=== PATIENT | female | born 1955 | race Caucasian/White ===

== ENCOUNTER 2019-01-22 11:34 | Inpatient (IN) | payer OTHER ==
[2019-01-22] MEDS ORDERED: HEPARIN 1000 UNITS/ML 10 ML INJ (13:14)
[2019-01-22] MEDS: INSULIN ASPART [NOVOLOG] 3 ML PEN SC (13:38)
[2019-01-22] MEDS ORDERED: PROPOFOL 20 ML ×2 (13:56→15:41)
[2019-01-22] MEDS ORDERED: MIDAZOLAM 1 MG/ML 2 ML INJ (13:56)
[2019-01-22] MEDS ORDERED: HYDROmorphONE 2 MG/ML SYG (13:56)
[2019-01-22] MEDS ORDERED: FLUMAZENIL 0.5 MG INJ (13:56)
[2019-01-22] MEDS ORDERED: ROCURONIUM 50 MG INJ ×2 (13:56→15:41)
[2019-01-22] MEDS ORDERED: CEFAZOLIN 1 GM INJ (13:56)
[2019-01-22] MEDS ORDERED: ONDANSETRON 4 MG INJ (13:56)
[2019-01-22] MEDS ORDERED: METOCLOPRAMIDE 10 MG INJ (13:57)
[2019-01-22] MEDS ORDERED: HYDROmorphONE 0.5 MG/0.5 ML SYG IV ×3 (14:00)
[2019-01-22] MEDS ORDERED: MEPERIDINE 25 MG INJ IV (14:00)
[2019-01-22] MEDS ORDERED: hydrALAzine 20 MG INJ IV ×2 (14:00→20:00)
[2019-01-22] MEDS ORDERED: DIPHENHYDRAMINE 50 MG INJ IV (14:00)
[2019-01-22] MEDS ORDERED: ONDANSETRON 4 MG INJ IV (14:00)
[2019-01-22] MEDS ORDERED: LABETALOL HCL 20MG INJ IV (14:00)
[2019-01-22] MEDS ORDERED: FENTAnyl 50 MCG/ML VIAL IV ×3 (14:00)
[2019-01-22] MEDS ORDERED: FAMOTIDINE 20 MG INJ (15:26)
[2019-01-22] MEDS ORDERED: METOPROLOL 5 MG INJ (15:32)
[2019-01-22] MEDS ORDERED: NALOXONE (0.4 MG/ML) INJ IV (16:00)
[2019-01-22] MEDS ORDERED: GLYCOPYRROLATE 0.4 MG INJ (18:08)
[2019-01-22] MEDS ORDERED: NEOSTIGMINE 3 MG/3 ML SYRINGE (18:08)
[2019-01-22] MEDS: NEOMYC/POLYMYX/BACIT 30 GM OINT (18:30)
[2019-01-22] MEDS: CEFAZOLIN 1 GM INJ (18:31)
[2019-01-22] MEDS: GELATIN SIZE 100 SPONGE ×2 (18:31)
[2019-01-22] MEDS: THROMBIN 5000 UNIT VIAL ×2 (18:31→18:32)
[2019-01-22] MEDS ORDERED: hydrOXYzine HCL 50 MG TAB PO (20:00)
[2019-01-22] MEDS ORDERED: INSULIN GLARGINE [LANtus] 3 ML PEN SC (21:00)
[2019-01-22] MEDS ORDERED: GLUCAGON 1 MG INJ IM (22:30)
[2019-01-22] MEDS ORDERED: GLUCOSE GEL 15 GRAM TUBE BUCCAL (22:30)
[2019-01-22] MEDS ORDERED: hydrOXYzine HCL 25 MG TAB PO (22:30)
[2019-01-22] MEDS ORDERED: GLUCOSE GEL 15 GRAM TUBE PO (22:30)
[2019-01-22] MEDS: HYDROmorphONE 0.5 MG/0.5 ML SYG IV (23:39)
[2019-01-22] MEDS: NS + KCL 20 MEQ 1,000 ML IV (23:41)
[2019-01-22] MEDS: INSULIN GLARGINE [LANTus] (100 UNITS/ML) SYG SC (23:47)
[2019-01-22] MEDS: ROPINIROLE 1 MG TAB PO (23:49)
[2019-01-22] MEDS: ATORVASTATIN 40 MG TAB PO (23:49)
[2019-01-23] MEDS: CEFAZOLIN 2 GM/50 ML (PMX) 50 ML IVPB ×4 (01:03→22:30)
[2019-01-23] MEDS: HYDROmorphONE 1 MG/ML SYG IV ×6 (01:04→21:14)
[2019-01-23] MEDS: INSULIN ASPART [NOVOLOG] 3 ML PEN SC ×9 (01:12→21:32)
[2019-01-23] MEDS: NS + KCL 20 MEQ 1,000 ML IV (02:00)
[2019-01-23] MEDS ORDERED: ACCU-CHEK XX (02:00)
[2019-01-23 05:26] LABS: HEMATOCRIT 32.4 % (37.0-47.0); HEMOGLOBIN 10.4 g/dl (12.0-16.0)
[2019-01-23 06:07] LABS: ANION GAP 11 (5-13); BLOOD UREA NITROGEN 32 mg/dl (7-20); CALCIUM 8.6 mg/dl (8.4-10.2); CARBON DIOXIDE 21 mmol/L (21-31); CHLORIDE 107 mmol/L (97-110); CREATININE 1.21 mg/dl (0.44-1.00); Estimated GFR 45 mL/min (>60); GLUCOSE 387 mg/dl (70-220); POTASSIUM 5.2 mmol/L (3.5-5.1); SODIUM 139 mmol/L (135-144)
[2019-01-23] MEDS: FUROSEMIDE 40 MG TAB PO (11:29)
[2019-01-23] MEDS: LISINOPRIL 5 MG TAB PO (11:29)
[2019-01-23] MEDS: SOD CHLORIDE 0.9% 1,000 ML IV ×2 (11:29→21:35)
[2019-01-23] MEDS: FLUOXETINE 20 MG CAP PO (11:29)
[2019-01-23] MEDS: ROPINIROLE 1 MG TAB PO (21:13)
[2019-01-23] MEDS: ATORVASTATIN 40 MG TAB PO (21:13)
[2019-01-23] MEDS: INSULIN GLARGINE [LANTus] (100 UNITS/ML) SYG SC (22:29)
[2019-01-24] MEDS: INSULIN ASPART [NOVOLOG] 3 ML PEN SC ×8 (01:55→17:44)
[2019-01-24] MEDS: HYDROmorphONE 1 MG/ML SYG IV (01:58)
[2019-01-24] MEDS: ONDANSETRON 4 MG INJ IV (03:43)
[2019-01-24] MEDS: HYDROmorphONE 2 MG/ML SYG IV ×5 (03:43→22:03)
[2019-01-24] MEDS: CEFAZOLIN 2 GM/50 ML (PMX) 50 ML IVPB ×3 (05:44→22:34)
[2019-01-24] MEDS: SOD CHLORIDE 0.9% 1,000 ML IV ×2 (06:30→13:19)
[2019-01-24] MEDS ORDERED: THROMBIN 5000 UNIT VIAL ×2 (06:56→07:09)
[2019-01-24] MEDS ORDERED: ROPIVACAINE 0.5 % 30 ML VIAL (07:09)
[2019-01-24] MEDS ORDERED: ROCURONIUM 50 MG INJ (07:27)
[2019-01-24] MEDS ORDERED: CEFAZOLIN 1 GM INJ (07:27)
[2019-01-24] MEDS ORDERED: PROPOFOL 20 ML (07:27)
[2019-01-24] MEDS ORDERED: MIDAZOLAM 1 MG/ML 2 ML INJ (07:27)
[2019-01-24] MEDS ORDERED: METOCLOPRAMIDE 10 MG INJ (08:12)
[2019-01-24] MEDS ORDERED: ONDANSETRON 4 MG INJ (08:12)
[2019-01-24] MEDS ORDERED: DEXAMETHASONE 4 MG/ML 5 ML INJ (08:12)
[2019-01-24] MEDS: GELATIN SIZE 100 SPONGE (08:24)
[2019-01-24] MEDS: ROPIVACAINE 0.5 % 30 ML VIAL ×2 (08:24)
[2019-01-24] MEDS: THROMBIN 5000 UNIT VIAL (08:25)
[2019-01-24] MEDS ORDERED: SUGAMMADEX SODIUM 200 MG/2 ML VIAL IV (09:05)
[2019-01-24] MEDS ORDERED: METOCLOPRAMIDE 10 MG INJ IV (09:30)
[2019-01-24] MEDS ORDERED: hydrALAzine 20 MG INJ IV (09:30)
[2019-01-24] MEDS ORDERED: DIPHENHYDRAMINE 50 MG INJ IV (09:30)
[2019-01-24] MEDS ORDERED: EPHEDrine 25 MG/5 ML SYG IV (09:30)
[2019-01-24] MEDS ORDERED: HYDROmorphONE 1 MG/5 ML IV SYRINGE IV ×3 (09:30)
[2019-01-24] MEDS ORDERED: LABETALOL HCL 20MG INJ IV (09:30)
[2019-01-24] MEDS ORDERED: FENTAnyl 50 MCG/ML VIAL IV ×3 (09:30)
[2019-01-24] MEDS ORDERED: ONDANSETRON 4 MG INJ IV (09:30)
[2019-01-24] MEDS ORDERED: MEPERIDINE 25 MG INJ IV (09:30)
[2019-01-24] MEDS ORDERED: OXYCODONE/ACETAMINOPHEN (5/325) TAB PO ×2 (09:30)
[2019-01-24] MEDS: FLUOXETINE 20 MG CAP PO (13:31)
[2019-01-24] MEDS: LISINOPRIL 5 MG TAB PO (13:32)
[2019-01-24] MEDS: FUROSEMIDE 40 MG TAB PO (13:32)
[2019-01-24] MEDS: ROPINIROLE 1 MG TAB PO (22:02)
[2019-01-24] MEDS: ATORVASTATIN 40 MG TAB PO (22:02)
[2019-01-24] MEDS: INSULIN GLARGINE [LANTus] (100 UNITS/ML) SYG SC (22:07)
[2019-01-24] MEDS ORDERED: INSULIN ASPART [NOVOLOG] 3 ML PEN SC (22:30)
[2019-01-24] MEDS: Insulin NOVOLOG SS MODERATE Algorithm (SS with meals and bedtime) SC (22:36)
[2019-01-25] MEDS: HYDROmorphONE 2 MG/ML SYG IV ×6 (03:26→19:56)
[2019-01-25 05:53] LABS: ADD MAN DIFF? NO
[2019-01-25 06:00] LABS: WHITE BLOOD COUNT 10.9 10^3/ul (4.8-10.8)
[2019-01-25 06:00] LABS: BASOPHILS % 0.2 % (0.0-2.0); HEMATOCRIT 24.1 % (37.0-47.0); HEMOGLOBIN 7.6 g/dl (12.0-16.0); LYMPHOCYTES # 0.7 10^3/ul (0.8-2.9); LYMPHOCYTES % 6.2 % (15.0-51.0); MEAN CORPUSCULAR HEMOGLOBIN 28.3 pg (29.0-33.0); MEAN CORPUSCULAR HGB CONC 31.5 g/dl (32.0-37.0); MEAN CORPUSCULAR VOLUME 89.6 fl (82.0-101.0); MEAN PLATELET VOLUME 10.6 fl (7.4-10.4); MONOCYTE # 0.7 10^3/ul (0.3-0.9); MONOCYTES % 6.3 % (0.0-11.0); NEUTROPHIL # 9.4 10^3/ul (1.6-7.5); NEUTROPHILS % 86.5 % (39.0-77.0); PLATELET COUNT 151 10^3/UL (140-415); RED BLOOD COUNT 2.69 10^6/ul (4.20-5.40)
[2019-01-25] MEDS: CEFAZOLIN 2 GM/50 ML (PMX) 50 ML IVPB ×3 (06:35→21:14)
[2019-01-25] MEDS: SOD CHLORIDE 0.9% 1,000 ML IV ×3 (06:43→22:30)
[2019-01-25 06:44] LABS: ANION GAP 5 (5-13); BLOOD UREA NITROGEN 32 mg/dl (7-20); CALCIUM 8.4 mg/dl (8.4-10.2); CARBON DIOXIDE 25 mmol/L (21-31); CHLORIDE 109 mmol/L (97-110); Estimated GFR 46 mL/min (>60); GLUCOSE 147 mg/dl (70-220); POTASSIUM 3.9 mmol/L (3.5-5.1); SODIUM 139 mmol/L (135-144)
[2019-01-25] MEDS: FLUOXETINE 20 MG CAP PO (08:41)
[2019-01-25] MEDS: LISINOPRIL 5 MG TAB PO (08:42)
[2019-01-25] MEDS: FUROSEMIDE 40 MG TAB PO (08:42)
[2019-01-25] MEDS: INSULIN ASPART [NOVOLOG] 3 ML PEN SC ×3 (08:56→18:07)
[2019-01-25] MEDS: Insulin NOVOLOG SS MODERATE Algorithm (SS with meals and bedtime) SC ×4 (08:56→21:00)
[2019-01-25] MEDS: OXYCODONE/ACETAMINOPHEN (10/325) TAB PO ×2 (10:55→17:36)
[2019-01-25] MEDS: ROPINIROLE 1 MG TAB PO (21:14)
[2019-01-25] MEDS: ATORVASTATIN 40 MG TAB PO (21:14)
[2019-01-25] MEDS: INSULIN GLARGINE [LANTus] (100 UNITS/ML) SYG SC (21:16)
[2019-01-26] MEDS: OXYCODONE/ACETAMINOPHEN (10/325) TAB PO ×3 (01:14→18:10)
[2019-01-26] MEDS: HYDROmorphONE 2 MG/ML SYG IV ×5 (02:05→19:34)
[2019-01-26] MEDS: CEFAZOLIN 2 GM/50 ML (PMX) 50 ML IVPB ×3 (05:29→21:07)
[2019-01-26 05:55] LABS: ADD MAN DIFF? NO
[2019-01-26 06:13] LABS: ABNORMAL IP MESSAGE 1; BASOPHILS % 0.5 % (0.0-2.0); EOSINOPHILS # 0.1 10^3/ul (0.0-0.5); EOSINOPHILS % 1.8 % (0.0-7.0); HEMATOCRIT 22.4 % (37.0-47.0); LYMPHOCYTES # 0.7 10^3/ul (0.8-2.9); MEAN CORPUSCULAR HEMOGLOBIN 27.2 pg (29.0-33.0); MEAN CORPUSCULAR HGB CONC 30.8 g/dl (32.0-37.0); MEAN CORPUSCULAR VOLUME 88.2 fl (82.0-101.0); MEAN PLATELET VOLUME 10.7 fl (7.4-10.4); MONOCYTE # 0.5 10^3/ul (0.3-0.9); MONOCYTES % 6.8 % (0.0-11.0); NEUTROPHIL # 5.2 10^3/ul (1.6-7.5); NEUTROPHILS % 79.3 % (39.0-77.0); PLATELET COUNT 141 10^3/UL (140-415); RED BLOOD COUNT 2.54 10^6/ul (4.20-5.40); RED CELL DISTRIBUTION WIDTH 13.8 % (11.5-14.5)
[2019-01-26 06:13] LABS: WHITE BLOOD COUNT 6.6 10^3/ul (4.8-10.8)
[2019-01-26 06:36] LABS: ANION GAP 3 (5-13); BLOOD UREA NITROGEN 27 mg/dl (7-20); CALCIUM 8.2 mg/dl (8.4-10.2); CARBON DIOXIDE 27 mmol/L (21-31); CHLORIDE 105 mmol/L (97-110); CREATININE 1.04 mg/dl (0.44-1.00); Estimated GFR 54 mL/min (>60); GLUCOSE 142 mg/dl (70-220); POTASSIUM 3.7 mmol/L (3.5-5.1); SODIUM 135 mmol/L (135-144)
[2019-01-26 06:52] LABS: HEMOGLOBIN 6.9 g/dl (12.0-16.0); POSITIVE DIFF @See below
[2019-01-26] MEDS: Insulin NOVOLOG SS MODERATE Algorithm (SS with meals and bedtime) SC ×4 (08:24→21:00)
[2019-01-26] MEDS: INSULIN ASPART [NOVOLOG] 3 ML PEN SC ×3 (08:24→18:02)
[2019-01-26] MEDS: LISINOPRIL 5 MG TAB PO (08:25)
[2019-01-26] MEDS: FLUOXETINE 20 MG CAP PO (08:25)
[2019-01-26] MEDS: FUROSEMIDE 40 MG TAB PO (08:26)
[2019-01-26] MEDS: SOD CHLORIDE 0.9% 1,000 ML IV (09:21)
[2019-01-26 10:39] LABS: IMMEDIATE SPIN CROSSMATCH 1 1
[2019-01-26] MEDS: ROPINIROLE 1 MG TAB PO (20:59)
[2019-01-26] MEDS: ATORVASTATIN 40 MG TAB PO (20:59)
[2019-01-26] MEDS: INSULIN GLARGINE [LANTus] (100 UNITS/ML) SYG SC (21:05)
[2019-01-27] MEDS: OXYCODONE/ACETAMINOPHEN (10/325) TAB PO ×4 (00:11→22:25)
[2019-01-27] MEDS: CEFAZOLIN 2 GM/50 ML (PMX) 50 ML IVPB ×3 (05:22→21:16)
[2019-01-27] MEDS: HYDROmorphONE 2 MG/ML SYG IV ×5 (05:23→21:13)
[2019-01-27] MEDS: INSULIN ASPART [NOVOLOG] 3 ML PEN SC ×3 (08:39→17:54)
[2019-01-27 08:40] LABS: ADD MAN DIFF? NO
[2019-01-27] MEDS: FLUOXETINE 20 MG CAP PO (08:40)
[2019-01-27] MEDS: Insulin NOVOLOG SS MODERATE Algorithm (SS with meals and bedtime) SC ×4 (08:40→20:19)
[2019-01-27] MEDS: LISINOPRIL 5 MG TAB PO (08:41)
[2019-01-27] MEDS: FUROSEMIDE 40 MG TAB PO (08:41)
[2019-01-27 08:56] LABS: ABNORMAL IP MESSAGE 1; BASOPHILS % 0.3 % (0.0-2.0); EOSINOPHILS # 0.2 10^3/ul (0.0-0.5); EOSINOPHILS % 2.5 % (0.0-7.0); HEMATOCRIT 25.4 % (37.0-47.0); HEMOGLOBIN 8.4 g/dl (12.0-16.0); LYMPHOCYTES # 0.5 10^3/ul (0.8-2.9); LYMPHOCYTES % 8.9 % (15.0-51.0); MEAN CORPUSCULAR HEMOGLOBIN 28.1 pg (29.0-33.0); MEAN CORPUSCULAR HGB CONC 33.1 g/dl (32.0-37.0); MEAN CORPUSCULAR VOLUME 84.9 fl (82.0-101.0); MONOCYTE # 0.5 10^3/ul (0.3-0.9); MONOCYTES % 7.5 % (0.0-11.0); NEUTROPHIL # 4.8 10^3/ul (1.6-7.5); PLATELET COUNT 169 10^3/UL (140-415); RED BLOOD COUNT 2.99 10^6/ul (4.20-5.40); RED CELL DISTRIBUTION WIDTH 13.9 % (11.5-14.5)
[2019-01-27 09:00] LABS: POSITIVE DIFF @See below
[2019-01-27 09:08] LABS: ANION GAP 5 (5-13); BLOOD UREA NITROGEN 22 mg/dl (7-20); CALCIUM 8.2 mg/dl (8.4-10.2); CARBON DIOXIDE 29 mmol/L (21-31); CHLORIDE 102 mmol/L (97-110); CREATININE 0.86 mg/dl (0.44-1.00); Estimated GFR > 60 mL/min (>60); GLUCOSE 166 mg/dl (70-220); POTASSIUM 3.5 mmol/L (3.5-5.1); SODIUM 136 mmol/L (135-144)
[2019-01-27] MEDS: ATORVASTATIN 40 MG TAB PO (20:16)
[2019-01-27] MEDS: ROPINIROLE 1 MG TAB PO (20:16)
[2019-01-27] MEDS: INSULIN GLARGINE [LANTus] (100 UNITS/ML) SYG SC (20:23)
[2019-01-28] MEDS: HYDROmorphONE 2 MG/ML SYG IV ×7 (01:56→22:15)
[2019-01-28] MEDS: OXYCODONE/ACETAMINOPHEN (10/325) TAB PO ×3 (04:34→17:34)
[2019-01-28 05:19] LABS: ADD MAN DIFF? NO
[2019-01-28 05:26] LABS: BASOPHIL # 0.1 10^3/ul (0.0-0.1); BASOPHILS % 0.8 % (0.0-2.0); EOSINOPHILS # 0.3 10^3/ul (0.0-0.5); EOSINOPHILS % 4.6 % (0.0-7.0); HEMATOCRIT 27.1 % (37.0-47.0); HEMOGLOBIN 8.8 g/dl (12.0-16.0); LYMPHOCYTES # 1.2 10^3/ul (0.8-2.9); LYMPHOCYTES % 16.5 % (15.0-51.0); MEAN CORPUSCULAR HGB CONC 32.5 g/dl (32.0-37.0); MEAN CORPUSCULAR VOLUME 86.3 fl (82.0-101.0); MEAN PLATELET VOLUME 9.9 fl (7.4-10.4); MONOCYTE # 0.8 10^3/ul (0.3-0.9); MONOCYTES % 11.3 % (0.0-11.0); NEUTROPHIL # 4.8 10^3/ul (1.6-7.5); PLATELET COUNT 210 10^3/UL (140-415); RED BLOOD COUNT 3.14 10^6/ul (4.20-5.40); RED CELL DISTRIBUTION WIDTH 14.1 % (11.5-14.5)
[2019-01-28 05:26] LABS: WHITE BLOOD COUNT 7.3 10^3/ul (4.8-10.8)
[2019-01-28 05:51] LABS: ANION GAP 6 (5-13); BLOOD UREA NITROGEN 27 mg/dl (7-20); CALCIUM 8.7 mg/dl (8.4-10.2); CARBON DIOXIDE 34 mmol/L (21-31); CHLORIDE 97 mmol/L (97-110); CREATININE 1.19 mg/dl (0.44-1.00); Estimated GFR 46 mL/min (>60); GLUCOSE 132 mg/dl (70-220); POTASSIUM 3.5 mmol/L (3.5-5.1); SODIUM 137 mmol/L (135-144)
[2019-01-28] MEDS: CEFAZOLIN 2 GM/50 ML (PMX) 50 ML IVPB ×3 (05:58→22:16)
[2019-01-28] MEDS: INSULIN ASPART [NOVOLOG] 3 ML PEN SC ×3 (08:30→17:29)
[2019-01-28] MEDS: Insulin NOVOLOG SS MODERATE Algorithm (SS with meals and bedtime) SC ×4 (08:31→21:00)
[2019-01-28] MEDS: LISINOPRIL 5 MG TAB PO (08:32)
[2019-01-28] MEDS: FUROSEMIDE 40 MG TAB PO (08:32)
[2019-01-28] MEDS: FLUOXETINE 20 MG CAP PO (08:32)
[2019-01-28] MEDS: ATORVASTATIN 40 MG TAB PO (22:15)
[2019-01-28] MEDS: ROPINIROLE 1 MG TAB PO (22:15)
[2019-01-28] MEDS: INSULIN GLARGINE [LANTus] (100 UNITS/ML) SYG SC (23:52)
[2019-01-29] MEDS: HYDROmorphONE 2 MG/ML SYG IV ×5 (05:32→21:01)
[2019-01-29] MEDS: AL HYDROX/MG HYDROX/SIMETH 30 ML CUP PO ×2 (05:32→14:26)
[2019-01-29] MEDS: CEFAZOLIN 2 GM/50 ML (PMX) 50 ML IVPB ×3 (05:33→21:09)
[2019-01-29 05:40] LABS: ADD MAN DIFF? NO
[2019-01-29 05:47] LABS: ABNORMAL IP MESSAGE 1; BASOPHILS % 0.3 % (0.0-2.0); EOSINOPHILS # 0.3 10^3/ul (0.0-0.5); EOSINOPHILS % 3.8 % (0.0-7.0); HEMATOCRIT 26.2 % (37.0-47.0); HEMOGLOBIN 8.5 g/dl (12.0-16.0); LYMPHOCYTES # 0.6 10^3/ul (0.8-2.9); LYMPHOCYTES % 8.3 % (15.0-51.0); MEAN CORPUSCULAR HEMOGLOBIN 27.7 pg (29.0-33.0); MEAN CORPUSCULAR HGB CONC 32.4 g/dl (32.0-37.0); MEAN CORPUSCULAR VOLUME 85.3 fl (82.0-101.0); MEAN PLATELET VOLUME 9.8 fl (7.4-10.4); MONOCYTE # 0.6 10^3/ul (0.3-0.9); MONOCYTES % 9.2 % (0.0-11.0); NEUTROPHIL # 5.1 10^3/ul (1.6-7.5); NEUTROPHILS % 76.9 % (39.0-77.0); PLATELET COUNT 223 10^3/UL (140-415); RED BLOOD COUNT 3.07 10^6/ul (4.20-5.40)
[2019-01-29 05:47] LABS: WHITE BLOOD COUNT 6.6 10^3/ul (4.8-10.8)
[2019-01-29 05:55] LABS: POSITIVE DIFF @See below
[2019-01-29 06:24] LABS: ANION GAP 7 (5-13); BLOOD UREA NITROGEN 27 mg/dl (7-20); CALCIUM 8.4 mg/dl (8.4-10.2); CARBON DIOXIDE 31 mmol/L (21-31); CHLORIDE 97 mmol/L (97-110); CREATININE 0.99 mg/dl (0.44-1.00); Estimated GFR 57 mL/min (>60); GLUCOSE 130 mg/dl (70-220); POTASSIUM 3.1 mmol/L (3.5-5.1); SODIUM 135 mmol/L (135-144)
[2019-01-29] MEDS: INSULIN ASPART [NOVOLOG] 3 ML PEN SC ×3 (08:26→18:19)
[2019-01-29] MEDS: Insulin NOVOLOG SS MODERATE Algorithm (SS with meals and bedtime) SC ×4 (08:27→21:00)
[2019-01-29] MEDS: FLUOXETINE 20 MG CAP PO (08:28)
[2019-01-29] MEDS: FUROSEMIDE 40 MG TAB PO (08:29)
[2019-01-29] MEDS: LISINOPRIL 5 MG TAB PO (08:29)
[2019-01-29] MEDS: OXYCODONE/ACETAMINOPHEN (10/325) TAB PO (12:45)
[2019-01-29] MEDS: POTASSIUM CHLORIDE 20 MEQ POWDER FOR ORAL SOLN PO (15:07)
[2019-01-29] MEDS: SENNA TAB PO ×2 (15:07→21:09)
[2019-01-29] MEDS: ROPINIROLE 1 MG TAB PO (21:09)
[2019-01-29] MEDS: LUBIPROSTONE 24 MCG CAP PO (21:09)
[2019-01-29] MEDS: ATORVASTATIN 40 MG TAB PO (21:09)
[2019-01-29] MEDS: INSULIN GLARGINE [LANTus] (100 UNITS/ML) SYG SC (21:11)
[2019-01-30] MEDS: HYDROmorphONE 2 MG/ML SYG IV ×6 (05:09→20:57)
[2019-01-30] MEDS: CEFAZOLIN 2 GM/50 ML (PMX) 50 ML IVPB ×2 (05:38→16:27)
[2019-01-30] MEDS: AL HYDROX/MG HYDROX/SIMETH 30 ML CUP PO (05:39)
[2019-01-30] MEDS: INSULIN ASPART [NOVOLOG] 3 ML PEN SC ×3 (08:34→17:45)
[2019-01-30] MEDS: LUBIPROSTONE 24 MCG CAP PO ×2 (08:35→20:59)
[2019-01-30] MEDS: Insulin NOVOLOG SS MODERATE Algorithm (SS with meals and bedtime) SC ×4 (08:35→21:00)
[2019-01-30] MEDS: FLUOXETINE 20 MG CAP PO (08:35)
[2019-01-30] MEDS: SENNA TAB PO ×2 (08:35→20:59)
[2019-01-30] MEDS: LISINOPRIL 5 MG TAB PO (08:36)
[2019-01-30] MEDS: FUROSEMIDE 40 MG TAB PO (08:36)
[2019-01-30] MEDS: OXYCODONE/ACETAMINOPHEN (10/325) TAB PO (16:27)
[2019-01-30] MEDS: ROPINIROLE 1 MG TAB PO (20:59)
[2019-01-30] MEDS: ATORVASTATIN 40 MG TAB PO (20:59)
[2019-01-30] MEDS: INSULIN GLARGINE [LANTus] (100 UNITS/ML) SYG SC (21:20)
[2019-01-31] MEDS: OXYCODONE/ACETAMINOPHEN (10/325) TAB PO ×3 (01:52→13:54)
[2019-01-31] MEDS: HYDROmorphONE 2 MG/ML SYG IV ×5 (02:47→20:12)
[2019-01-31] MEDS: INSULIN ASPART [NOVOLOG] 3 ML PEN SC ×3 (08:48→18:15)
[2019-01-31] MEDS: Insulin NOVOLOG SS MODERATE Algorithm (SS with meals and bedtime) SC ×4 (08:49→20:20)
[2019-01-31] MEDS: LUBIPROSTONE 24 MCG CAP PO ×2 (08:50→20:12)
[2019-01-31] MEDS: FLUOXETINE 20 MG CAP PO (08:51)
[2019-01-31] MEDS: FUROSEMIDE 40 MG TAB PO (08:51)
[2019-01-31] MEDS: LISINOPRIL 5 MG TAB PO (08:52)
[2019-01-31] MEDS: SENNA TAB PO ×2 (08:52→20:12)
[2019-01-31] MEDS: LORAZEPAM 0.5 MG TAB PO (12:01)
[2019-01-31] MEDS: ATORVASTATIN 40 MG TAB PO (20:12)
[2019-01-31] MEDS: ROPINIROLE 1 MG TAB PO (20:12)
[2019-01-31] MEDS: INSULIN GLARGINE [LANTus] (100 UNITS/ML) SYG SC (20:21)
[2019-02-01] MEDS: HYDROmorphONE 2 MG/ML SYG IV ×6 (02:48→21:49)
[2019-02-01] MEDS: ONDANSETRON 4 MG INJ IV (02:48)
[2019-02-01 05:37] LABS: ADD MAN DIFF? NO
[2019-02-01 05:47] LABS: ABNORMAL IP MESSAGE 1; BASOPHILS % 0.5 % (0.0-2.0); EOSINOPHILS # 0.2 10^3/ul (0.0-0.5); EOSINOPHILS % 2.5 % (0.0-7.0); HEMATOCRIT 27.6 % (37.0-47.0); HEMOGLOBIN 8.8 g/dl (12.0-16.0); LYMPHOCYTES # 0.5 10^3/ul (0.8-2.9); LYMPHOCYTES % 7.3 % (15.0-51.0); MEAN CORPUSCULAR HEMOGLOBIN 27.5 pg (29.0-33.0); MEAN CORPUSCULAR HGB CONC 31.9 g/dl (32.0-37.0); MEAN CORPUSCULAR VOLUME 86.3 fl (82.0-101.0); MEAN PLATELET VOLUME 9.7 fl (7.4-10.4); MONOCYTE # 0.6 10^3/ul (0.3-0.9); MONOCYTES % 7.8 % (0.0-11.0); NEUTROPHIL # 5.9 10^3/ul (1.6-7.5); NEUTROPHILS % 81.1 % (39.0-77.0); PLATELET COUNT 311 10^3/UL (140-415); RED CELL DISTRIBUTION WIDTH 13.6 % (11.5-14.5)
[2019-02-01 05:47] LABS: WHITE BLOOD COUNT 7.3 10^3/ul (4.8-10.8)
[2019-02-01 05:54] LABS: POSITIVE DIFF @See below
[2019-02-01 06:06] LABS: ANION GAP 9 (5-13); BLOOD UREA NITROGEN 21 mg/dl (7-20); CALCIUM 8.7 mg/dl (8.4-10.2); CARBON DIOXIDE 31 mmol/L (21-31); CHLORIDE 95 mmol/L (97-110); CREATININE 0.89 mg/dl (0.44-1.00); Estimated GFR > 60 mL/min (>60); GLUCOSE 267 mg/dl (70-220); SODIUM 135 mmol/L (135-144)
[2019-02-01] MEDS: AL HYDROX/MG HYDROX/SIMETH 30 ML CUP PO (07:09)
[2019-02-01] MEDS: INSULIN ASPART [NOVOLOG] 3 ML PEN SC ×3 (08:42→17:53)
[2019-02-01] MEDS: Insulin NOVOLOG SS MODERATE Algorithm (SS with meals and bedtime) SC ×4 (08:42→21:00)
[2019-02-01] MEDS: LUBIPROSTONE 24 MCG CAP PO ×2 (08:43→21:02)
[2019-02-01] MEDS: SENNA TAB PO ×2 (08:43→21:02)
[2019-02-01] MEDS: OXYCODONE/ACETAMINOPHEN (10/325) TAB PO ×2 (08:44→15:28)
[2019-02-01] MEDS: LISINOPRIL 5 MG TAB PO (08:44)
[2019-02-01] MEDS: FUROSEMIDE 40 MG TAB PO (08:44)
[2019-02-01] MEDS: FLUOXETINE 20 MG CAP PO (08:51)
[2019-02-01] MEDS: KETOROLAC 30 MG INJ IV ×2 (12:34→17:47)
[2019-02-01] MEDS: LORAZEPAM 0.5 MG TAB PO (12:34)
[2019-02-01] MEDS ORDERED: BETHANECHOL 10 MG TAB PO (21:00)
[2019-02-01] MEDS: INSULIN GLARGINE [LANTus] (100 UNITS/ML) SYG SC (21:00)
[2019-02-01] MEDS ORDERED: RISPERIDONE 2 MG TAB PO (21:00)
[2019-02-01] MEDS: ROPINIROLE 1 MG TAB PO (21:02)
[2019-02-01] MEDS: ATORVASTATIN 40 MG TAB PO (21:02)
[2019-02-01] MEDS: RISPERIDONE 2 MG TAB PO (21:06)
[2019-02-01] MEDS: BETHANECHOL 25 MG TAB PO (21:06)
[2019-02-02] MEDS: KETOROLAC 30 MG INJ IV ×5 (00:12→23:34)
[2019-02-02] MEDS: AL HYDROX/MG HYDROX/SIMETH 30 ML CUP PO ×3 (02:17→17:32)
[2019-02-02] MEDS: HYDROmorphONE 2 MG/ML SYG IV ×5 (02:18→22:00)
[2019-02-02 05:42] LABS: ADD MAN DIFF? NO
[2019-02-02 05:49] LABS: BASOPHILS % 0.5 % (0.0-2.0); EOSINOPHILS # 0.2 10^3/ul (0.0-0.5); EOSINOPHILS % 3.1 % (0.0-7.0); HEMATOCRIT 24.6 % (37.0-47.0); HEMOGLOBIN 7.8 g/dl (12.0-16.0); LYMPHOCYTES # 0.9 10^3/ul (0.8-2.9); LYMPHOCYTES % 16.2 % (15.0-51.0); MEAN CORPUSCULAR HEMOGLOBIN 27.6 pg (29.0-33.0); MEAN CORPUSCULAR HGB CONC 31.7 g/dl (32.0-37.0); MEAN CORPUSCULAR VOLUME 86.9 fl (82.0-101.0); MEAN PLATELET VOLUME 9.9 fl (7.4-10.4); MONOCYTE # 0.5 10^3/ul (0.3-0.9); MONOCYTES % 8.6 % (0.0-11.0); NEUTROPHILS % 70.6 % (39.0-77.0); PLATELET COUNT 267 10^3/UL (140-415); RED BLOOD COUNT 2.83 10^6/ul (4.20-5.40)
[2019-02-02 05:49] LABS: WHITE BLOOD COUNT 5.7 10^3/ul (4.8-10.8)
[2019-02-02 06:12] LABS: ANION GAP 8 (5-13); BLOOD UREA NITROGEN 29 mg/dl (7-20); CALCIUM 8.2 mg/dl (8.4-10.2); CARBON DIOXIDE 30 mmol/L (21-31); CHLORIDE 95 mmol/L (97-110); CREATININE 1.46 mg/dl (0.44-1.00); Estimated GFR 36 mL/min (>60); GLUCOSE 398 mg/dl (70-220); POTASSIUM 4.2 mmol/L (3.5-5.1); SODIUM 133 mmol/L (135-144)
[2019-02-02] MEDS: SENNA TAB PO ×2 (08:53→20:12)
[2019-02-02] MEDS: LUBIPROSTONE 24 MCG CAP PO ×2 (08:54→20:13)
[2019-02-02] MEDS: FLUOXETINE 20 MG CAP PO (08:54)
[2019-02-02] MEDS: BETHANECHOL 25 MG TAB PO ×3 (08:55→20:12)
[2019-02-02] MEDS: RISPERIDONE 2 MG TAB PO ×2 (08:55→20:12)
[2019-02-02] MEDS: FUROSEMIDE 40 MG TAB PO (08:56)
[2019-02-02] MEDS: INSULIN ASPART [NOVOLOG] 3 ML PEN SC ×4 (08:57→17:40)
[2019-02-02] MEDS: Insulin NOVOLOG SS MODERATE Algorithm (SS with meals and bedtime) SC ×2 (08:58→13:02)
[2019-02-02] MEDS: LISINOPRIL 5 MG TAB PO (08:59)
[2019-02-02 10:54] LABS: ANION GAP 10 (5-13); BLOOD UREA NITROGEN 27 mg/dl (7-20); CALCIUM 8.9 mg/dl (8.4-10.2); CARBON DIOXIDE 29 mmol/L (21-31); CHLORIDE 94 mmol/L (97-110); CREATININE 1.51 mg/dl (0.44-1.00); Estimated GFR 35 mL/min (>60); POTASSIUM 3.9 mmol/L (3.5-5.1); SODIUM 133 mmol/L (135-144)
[2019-02-02 11:03] LABS: GLUCOSE 466 mg/dl (70-220)
[2019-02-02] MEDS: INSULIN GLARGINE [LANTus] (100 UNITS/ML) SYG SC (11:08)
[2019-02-02] MEDS: metFORMIN 500 MG TAB PO (17:32)
[2019-02-02] MEDS: LORAZEPAM 0.5 MG TAB PO (17:32)
[2019-02-02] MEDS: ACCU-CHEK XX ×2 (17:39→19:55)
[2019-02-02] MEDS: LEVETIRACETAM 750 MG TAB PO (20:12)
[2019-02-02] MEDS: GABAPENTIN 300 MG CAP PO (20:12)
[2019-02-02] MEDS: ATORVASTATIN 40 MG TAB PO (20:13)
[2019-02-02] MEDS: ROPINIROLE 1 MG TAB PO (20:13)
[2019-02-03] MEDS: HYDROmorphONE 2 MG/ML SYG IV (01:10)
[2019-02-03 05:25] LABS: ADD MAN DIFF? NO
[2019-02-03 05:34] LABS: BASOPHILS % 0.5 % (0.0-2.0); EOSINOPHILS # 0.2 10^3/ul (0.0-0.5); EOSINOPHILS % 2.8 % (0.0-7.0); HEMATOCRIT 24.8 % (37.0-47.0); HEMOGLOBIN 7.8 g/dl (12.0-16.0); LYMPHOCYTES # 0.7 10^3/ul (0.8-2.9); LYMPHOCYTES % 11.4 % (15.0-51.0); MEAN CORPUSCULAR HEMOGLOBIN 27.3 pg (29.0-33.0); MEAN CORPUSCULAR HGB CONC 31.5 g/dl (32.0-37.0); MEAN CORPUSCULAR VOLUME 86.7 fl (82.0-101.0); MONOCYTE # 0.4 10^3/ul (0.3-0.9); NEUTROPHIL # 4.7 10^3/ul (1.6-7.5); NEUTROPHILS % 77.6 % (39.0-77.0); PLATELET COUNT 301 10^3/UL (140-415); RED BLOOD COUNT 2.86 10^6/ul (4.20-5.40); RED CELL DISTRIBUTION WIDTH 14.2 % (11.5-14.5)
[2019-02-03] MEDS: KETOROLAC 30 MG INJ IV ×3 (06:05→17:45)
[2019-02-03 06:11] LABS: MAGNESIUM 2.3 mg/dl (1.7-2.5)
[2019-02-03 06:31] LABS: ALANINE AMINOTRANSFERASE 16 IU/L (13-69); ALBUMIN 2.8 g/dl (3.3-4.9); ALBUMIN/GLOBULIN RATIO 1.03; ALKALINE PHOSPHATASE 114 IU/L (42-121); ANION GAP 6 (5-13); ASPARTATE AMINO TRANSFERASE 19 IU/L (15-46); BILIRUBIN,INDIRECT 0.5 mg/dl (0-1.1); BILIRUBIN,TOTAL 0.5 mg/dl (0.2-1.3); BLOOD UREA NITROGEN 29 mg/dl (7-20); CALCIUM 8.6 mg/dl (8.4-10.2); CARBON DIOXIDE 31 mmol/L (21-31); CHLORIDE 96 mmol/L (97-110); CREATININE 1.34 mg/dl (0.44-1.00); Estimated GFR 40 mL/min (>60); GLUCOSE 330 mg/dl (70-220); POTASSIUM 4.2 mmol/L (3.5-5.1); SODIUM 133 mmol/L (135-144); TOTAL PROTEIN 5.5 g/dl (6.1-8.1)
[2019-02-03 06:47] LABS: HEPATITIS C VIRAL ANTIBODY NEGATIVE (NEGATIVE)
[2019-02-03 07:49] LABS: HEMOGLOBIN A1C 6.7 % (0-5.9)
[2019-02-03] MEDS: ACCU-CHEK XX ×7 (08:40→19:45)
[2019-02-03] MEDS: LUBIPROSTONE 24 MCG CAP PO ×2 (08:51→20:59)
[2019-02-03] MEDS: SENNA TAB PO ×2 (08:51→20:59)
[2019-02-03] MEDS: LEVETIRACETAM 750 MG TAB PO ×2 (08:51→20:59)
[2019-02-03] MEDS: GABAPENTIN 300 MG CAP PO ×3 (08:52→20:59)
[2019-02-03] MEDS: RISPERIDONE 2 MG TAB PO ×2 (08:52→20:59)
[2019-02-03] MEDS: LISINOPRIL 5 MG TAB PO (08:52)
[2019-02-03] MEDS: BETHANECHOL 25 MG TAB PO ×3 (08:52→20:59)
[2019-02-03] MEDS: FLUOXETINE 20 MG CAP PO (08:53)
[2019-02-03] MEDS: FUROSEMIDE 40 MG TAB PO (08:53)
[2019-02-03] MEDS: INSULIN ASPART [NOVOLOG] 3 ML PEN SC ×4 (08:56→17:48)
[2019-02-03] MEDS: INSULIN GLARGINE [LANTus] (100 UNITS/ML) SYG SC ×2 (08:57→12:55)
[2019-02-03 09:24] LABS: ERYTHROCYTE SEDIMENTATION RATE 66 mm/Hr (0-30)
[2019-02-03] MEDS: LACTATED RINGER'S 250 ML IV (11:41)
[2019-02-03] MEDS: SOD CHLORIDE 0.9% 1,000 ML IV (12:47)
[2019-02-03] MEDS: metFORMIN 500 MG TAB PO ×2 (13:00→17:46)
[2019-02-03 13:35] LABS: IRON 26 ug/dl (35-150)
[2019-02-03 13:44] LABS: % IRON SATURATION 12 % SAT (22-52); TOTAL IRON BINDING CAPACITY 214 ug/dl (241-421)
[2019-02-03] MEDS: ATORVASTATIN 40 MG TAB PO (20:59)
[2019-02-03] MEDS: ROPINIROLE 1 MG TAB PO (20:59)
[2019-02-04] MEDS: KETOROLAC 30 MG INJ IV ×3 (06:00→12:37)
[2019-02-04 06:07] LABS: ADD MAN DIFF? NO
[2019-02-04 06:21] LABS: WHITE BLOOD COUNT 8.7 10^3/ul (4.8-10.8)
[2019-02-04 06:21] LABS: BASOPHILS % 0.5 % (0.0-2.0); EOSINOPHILS # 0.1 10^3/ul (0.0-0.5); EOSINOPHILS % 1.2 % (0.0-7.0); HEMATOCRIT 24.2 % (37.0-47.0); HEMOGLOBIN 7.6 g/dl (12.0-16.0); LYMPHOCYTES # 0.6 10^3/ul (0.8-2.9); MEAN CORPUSCULAR HEMOGLOBIN 27.2 pg (29.0-33.0); MEAN CORPUSCULAR HGB CONC 31.4 g/dl (32.0-37.0); MEAN CORPUSCULAR VOLUME 86.7 fl (82.0-101.0); MEAN PLATELET VOLUME 9.8 fl (7.4-10.4); MONOCYTE # 0.5 10^3/ul (0.3-0.9); MONOCYTES % 5.4 % (0.0-11.0); NEUTROPHIL # 7.4 10^3/ul (1.6-7.5); NEUTROPHILS % 85.4 % (39.0-77.0); PLATELET COUNT 307 10^3/UL (140-415); RED BLOOD COUNT 2.79 10^6/ul (4.20-5.40); RED CELL DISTRIBUTION WIDTH 14.2 % (11.5-14.5)
[2019-02-04 06:42] LABS: ANION GAP 4 (5-13); BLOOD UREA NITROGEN 25 mg/dl (7-20); CALCIUM 8.7 mg/dl (8.4-10.2); CARBON DIOXIDE 34 mmol/L (21-31); CHLORIDE 103 mmol/L (97-110); CREATININE 1.06 mg/dl (0.44-1.00); Estimated GFR 53 mL/min (>60); GLUCOSE 74 mg/dl (70-220); POTASSIUM 3.6 mmol/L (3.5-5.1); SODIUM 141 mmol/L (135-144)
[2019-02-04] MEDS: SOD CHLORIDE 0.9% 1,000 ML IV (06:47)
[2019-02-04] MEDS: ACCU-CHEK XX ×6 (08:00→19:30)
[2019-02-04 08:20] LABS: AADO2 Arterial 117.8 mmHg (7.0-24.0); Allen Test ACCEPTAB; Arterial Base Excess 5.8 mmol/L (-3.0-3); Arterial Blood Gas Oxygen Sat 98.5 mmHG (95.0-98.0); Arterial COHb 0.3 % (0.0-3.0); Arterial Fraction of Oxyhgb 97.9 % (93.0-99.0); Arterial HCO3 30.1 mmol/L (22.0-26.0); Arterial MetHb 0.3 % (0.0-1.5); Arterial pCO2 42.8 mmhg (35-45); MODE MASK - SIMPLE; Site Right Radial
[2019-02-04] MEDS ORDERED: INSULIN GLARGINE [LANTus] (100 UNITS/ML) SYG SC (09:00)
[2019-02-04] MEDS: metFORMIN 500 MG TAB PO ×2 (09:07→17:21)
[2019-02-04] MEDS: FUROSEMIDE 40 MG TAB PO (09:07)
[2019-02-04] MEDS: FERROUS SULFATE (EC) 325 MG TAB PO ×2 (09:07→22:02)
[2019-02-04] MEDS: LUBIPROSTONE 24 MCG CAP PO ×2 (09:07→22:02)
[2019-02-04] MEDS: LEVETIRACETAM 750 MG TAB PO ×2 (09:07→22:03)
[2019-02-04] MEDS: SENNA TAB PO ×2 (09:08→22:02)
[2019-02-04] MEDS: GABAPENTIN 300 MG CAP PO ×3 (09:08→22:02)
[2019-02-04] MEDS: RISPERIDONE 2 MG TAB PO ×2 (09:08→22:02)
[2019-02-04] MEDS: FLUOXETINE 20 MG CAP PO (09:08)
[2019-02-04] MEDS: BETHANECHOL 25 MG TAB PO ×3 (09:08→22:01)
[2019-02-04] MEDS: LISINOPRIL 5 MG TAB PO (09:09)
[2019-02-04 09:44] LABS: ADD MAN DIFF? NO
[2019-02-04 09:55] LABS: ABNORMAL IP MESSAGE 1; BASOPHILS % 0.4 % (0.0-2.0); EOSINOPHILS # 0.1 10^3/ul (0.0-0.5); EOSINOPHILS % 1.3 % (0.0-7.0); HEMATOCRIT 26.1 % (37.0-47.0); HEMOGLOBIN 8.3 g/dl (12.0-16.0); LYMPHOCYTES # 0.5 10^3/ul (0.8-2.9); LYMPHOCYTES % 5.6 % (15.0-51.0); MEAN CORPUSCULAR HEMOGLOBIN 27.8 pg (29.0-33.0); MEAN CORPUSCULAR HGB CONC 31.8 g/dl (32.0-37.0); MEAN CORPUSCULAR VOLUME 87.3 fl (82.0-101.0); MEAN PLATELET VOLUME 9.8 fl (7.4-10.4); MONOCYTE # 0.4 10^3/ul (0.3-0.9); MONOCYTES % 5.2 % (0.0-11.0); NEUTROPHIL # 7.2 10^3/ul (1.6-7.5); PLATELET COUNT 301 10^3/UL (140-415); RED BLOOD COUNT 2.99 10^6/ul (4.20-5.40); RED CELL DISTRIBUTION WIDTH 14.3 % (11.5-14.5)
[2019-02-04 09:55] LABS: WHITE BLOOD COUNT 8.3 10^3/ul (4.8-10.8)
[2019-02-04 10:05] LABS: POSITIVE DIFF @See below
[2019-02-04 10:13] LABS: ALANINE AMINOTRANSFERASE 22 IU/L (13-69); ALBUMIN 2.8 g/dl (3.3-4.9); ALBUMIN/GLOBULIN RATIO 1.07; ALKALINE PHOSPHATASE 114 IU/L (42-121); ANION GAP 3 (5-13); ASPARTATE AMINO TRANSFERASE 21 IU/L (15-46); BILIRUBIN,INDIRECT 0.5 mg/dl (0-1.1); BILIRUBIN,TOTAL 0.5 mg/dl (0.2-1.3); BLOOD UREA NITROGEN 22 mg/dl (7-20); CALCIUM 8.8 mg/dl (8.4-10.2); CARBON DIOXIDE 34 mmol/L (21-31); CHLORIDE 103 mmol/L (97-110); CREATININE 0.97 mg/dl (0.44-1.00); Estimated GFR 58 mL/min (>60); GLUCOSE 130 mg/dl (70-220); POTASSIUM 3.9 mmol/L (3.5-5.1); SODIUM 140 mmol/L (135-144); TOTAL PROTEIN 5.4 g/dl (6.1-8.1)
[2019-02-04 10:18] LABS: AMMONIA < 9 umol/l (9-30)
[2019-02-04 10:42] LABS: THYROID STIMULATING HORMONE 0.786 MIU/L (0.465-4.680)
[2019-02-04] MEDS: DOCUSATE SODIUM 100 MG CAP PO ×3 (11:08→22:02)
[2019-02-04] MEDS: INSULIN GLARGINE [LANTus] (100 UNITS/ML) SYG SC (11:16)
[2019-02-04] MEDS: INSULIN ASPART [NOVOLOG] 3 ML PEN SC ×4 (12:48→21:00)
[2019-02-04] MEDS: HYDROCODONE/APAP (5/325) TAB PO (19:12)
[2019-02-04] MEDS: NA PHOSPHATE/BIPHOS 133 ML ENEMA PR ×2 (21:01→21:02)
[2019-02-04] MEDS: HYDROmorphONE 2 MG/ML SYG IV (22:01)
[2019-02-04] MEDS: ROPINIROLE 1 MG TAB PO (22:02)
[2019-02-04] MEDS: ATORVASTATIN 40 MG TAB PO (22:02)
[2019-02-05] MEDS: SOD CHLORIDE 0.9% 1,000 ML IV ×2 (00:30→21:58)
[2019-02-05] MEDS: HYDROmorphONE 2 MG/ML SYG IV (06:21)
[2019-02-05] MEDS: ACCU-CHEK XX ×6 (08:23→19:55)
[2019-02-05] MEDS: metFORMIN 500 MG TAB PO ×2 (08:23→17:28)
[2019-02-05] MEDS: GABAPENTIN 300 MG CAP PO ×3 (08:24→21:53)
[2019-02-05] MEDS: DOCUSATE SODIUM 100 MG CAP PO ×3 (08:24→21:54)
[2019-02-05] MEDS: FLUOXETINE 20 MG CAP PO (08:24)
[2019-02-05] MEDS: LISINOPRIL 5 MG TAB PO (08:25)
[2019-02-05] MEDS: FERROUS SULFATE (EC) 325 MG TAB PO ×2 (08:25→21:53)
[2019-02-05] MEDS: EMPAGLIFLOZIN 10 MG TABLET PO (08:25)
[2019-02-05] MEDS: SENNA TAB PO ×2 (08:25→21:54)
[2019-02-05] MEDS: LUBIPROSTONE 24 MCG CAP PO ×2 (08:25→21:53)
[2019-02-05] MEDS: BETHANECHOL 25 MG TAB PO ×3 (08:25→21:53)
[2019-02-05] MEDS: FUROSEMIDE 40 MG TAB PO (08:25)
[2019-02-05] MEDS: LEVETIRACETAM 750 MG TAB PO ×2 (08:25→21:53)
[2019-02-05] MEDS: LINAGLIPTIN 5 MG TABLET PO (08:25)
[2019-02-05] MEDS: RISPERIDONE 2 MG TAB PO ×2 (08:25→21:53)
[2019-02-05] MEDS: INSULIN GLARGINE [LANTus] (100 UNITS/ML) SYG SC (08:41)
[2019-02-05] MEDS: INSULIN ASPART [NOVOLOG] 3 ML PEN SC ×7 (08:41→21:00)
[2019-02-05] MEDS: HYDROmorphONE 1 MG/ML SYG IV (17:56)
[2019-02-05] MEDS: ATORVASTATIN 40 MG TAB PO (21:53)
[2019-02-05] MEDS: ROPINIROLE 1 MG TAB PO (21:53)
[2019-02-06] MEDS: metFORMIN 500 MG TAB PO ×2 (07:57→17:20)
[2019-02-06] MEDS: EMPAGLIFLOZIN 10 MG TABLET PO (07:57)
[2019-02-06] MEDS: ACCU-CHEK XX ×6 (08:01→20:14)
[2019-02-06] MEDS: INSULIN ASPART [NOVOLOG] 3 ML PEN SC ×7 (08:41→20:08)
[2019-02-06] MEDS: INSULIN GLARGINE [LANTus] (100 UNITS/ML) SYG SC (08:44)
[2019-02-06] MEDS: HYDROmorphONE 1 MG/ML SYG IV ×4 (08:46→21:39)
[2019-02-06] MEDS: FLUOXETINE 20 MG CAP PO (08:47)
[2019-02-06] MEDS: DOCUSATE SODIUM 100 MG CAP PO ×3 (08:48→21:00)
[2019-02-06] MEDS: BETHANECHOL 25 MG TAB PO ×3 (08:48→21:28)
[2019-02-06] MEDS: SENNA TAB PO ×2 (08:48→21:00)
[2019-02-06] MEDS: LUBIPROSTONE 24 MCG CAP PO ×2 (08:48→21:00)
[2019-02-06] MEDS: LEVETIRACETAM 750 MG TAB PO ×2 (08:48→21:28)
[2019-02-06] MEDS: LISINOPRIL 5 MG TAB PO (08:49)
[2019-02-06] MEDS: RISPERIDONE 2 MG TAB PO ×2 (08:49→21:28)
[2019-02-06] MEDS: LINAGLIPTIN 5 MG TABLET PO (08:49)
[2019-02-06] MEDS: FERROUS SULFATE (EC) 325 MG TAB PO ×2 (08:49→21:28)
[2019-02-06] MEDS: FUROSEMIDE 40 MG TAB PO (08:49)
[2019-02-06] MEDS: GABAPENTIN 300 MG CAP PO ×3 (08:53→21:28)
[2019-02-06] MEDS: ATORVASTATIN 40 MG TAB PO (21:28)
[2019-02-06] MEDS: ROPINIROLE 1 MG TAB PO (21:28)
[2019-02-07] MEDS: SOD CHLORIDE 0.9% 500 ML IV (01:01)
[2019-02-07 06:12] LABS: ADD MAN DIFF? NO
[2019-02-07 06:16] LABS: BASOPHILS % 0.5 % (0.0-2.0); EOSINOPHILS # 0.2 10^3/ul (0.0-0.5); EOSINOPHILS % 3.8 % (0.0-7.0); HEMATOCRIT 23.9 % (37.0-47.0); HEMOGLOBIN 7.5 g/dl (12.0-16.0); LYMPHOCYTES # 0.9 10^3/ul (0.8-2.9); LYMPHOCYTES % 16.5 % (15.0-51.0); MEAN CORPUSCULAR HEMOGLOBIN 27.7 pg (29.0-33.0); MEAN CORPUSCULAR HGB CONC 31.4 g/dl (32.0-37.0); MEAN CORPUSCULAR VOLUME 88.2 fl (82.0-101.0); MEAN PLATELET VOLUME 9.5 fl (7.4-10.4); MONOCYTE # 0.5 10^3/ul (0.3-0.9); MONOCYTES % 8.2 % (0.0-11.0); NEUTROPHIL # 3.9 10^3/ul (1.6-7.5); NEUTROPHILS % 70.5 % (39.0-77.0); PLATELET COUNT 275 10^3/UL (140-415); RED BLOOD COUNT 2.71 10^6/ul (4.20-5.40); RED CELL DISTRIBUTION WIDTH 14.1 % (11.5-14.5)
[2019-02-07 06:16] LABS: WHITE BLOOD COUNT 5.5 10^3/ul (4.8-10.8)
[2019-02-07 06:52] LABS: ANION GAP 5 (5-13); BLOOD UREA NITROGEN 15 mg/dl (7-20); CARBON DIOXIDE 29 mmol/L (21-31); CHLORIDE 104 mmol/L (97-110); CREATININE 1.14 mg/dl (0.44-1.00); Estimated GFR 48 mL/min (>60); GLUCOSE 149 mg/dl (70-220); POTASSIUM 3.5 mmol/L (3.5-5.1); SODIUM 138 mmol/L (135-144)
[2019-02-07] MEDS: ACCU-CHEK XX ×6 (07:47→20:15)
[2019-02-07] MEDS: INSULIN ASPART [NOVOLOG] 3 ML PEN SC ×7 (08:17→20:16)
[2019-02-07] MEDS: GABAPENTIN 300 MG CAP PO ×3 (08:26→20:07)
[2019-02-07] MEDS: FUROSEMIDE 40 MG TAB PO (08:26)
[2019-02-07] MEDS: LEVETIRACETAM 750 MG TAB PO ×2 (08:26→20:07)
[2019-02-07] MEDS: FERROUS SULFATE (EC) 325 MG TAB PO ×2 (08:26→20:07)
[2019-02-07] MEDS: LINAGLIPTIN 5 MG TABLET PO (08:26)
[2019-02-07] MEDS: EMPAGLIFLOZIN 10 MG TABLET PO (08:26)
[2019-02-07] MEDS: metFORMIN 500 MG TAB PO ×2 (08:27→17:35)
[2019-02-07] MEDS: DOCUSATE SODIUM 100 MG CAP PO ×3 (08:27→20:07)
[2019-02-07] MEDS: RISPERIDONE 2 MG TAB PO ×2 (08:27→20:06)
[2019-02-07] MEDS: FLUOXETINE 20 MG CAP PO (08:27)
[2019-02-07] MEDS: BETHANECHOL 25 MG TAB PO ×3 (08:27→20:07)
[2019-02-07] MEDS: SENNA TAB PO ×2 (08:27→20:07)
[2019-02-07] MEDS: LUBIPROSTONE 24 MCG CAP PO ×2 (08:27→20:07)
[2019-02-07] MEDS: LISINOPRIL 5 MG TAB PO (08:27)
[2019-02-07] MEDS: INSULIN GLARGINE [LANTus] (100 UNITS/ML) SYG SC (08:36)
[2019-02-07] MEDS: HYDROmorphONE 0.5 MG/0.5 ML SYG IV (11:17)
[2019-02-07] MEDS ORDERED: FERROUS SULFATE (EC) 325 MG TAB PO (12:00)
[2019-02-07] MEDS: HYDROmorphONE 2 MG TAB PO ×2 (15:26→20:06)
[2019-02-07] MEDS: HYDROCODONE/APAP (5/325) TAB PO (17:35)
[2019-02-07] MEDS: AL HYDROX/MG HYDROX/SIMETH 30 ML CUP PO (17:37)
[2019-02-07] MEDS: ROPINIROLE 1 MG TAB PO (20:07)
[2019-02-07] MEDS: ATORVASTATIN 40 MG TAB PO (20:07)
[2019-02-07] MEDS: NEOMYC/POLYMYX/BACIT 30 GM OINT TOP (22:44)
[2019-02-08] MEDS: INSULIN ASPART [NOVOLOG] 3 ML PEN SC ×7 (07:55→20:18)
[2019-02-08] MEDS: ACCU-CHEK XX ×6 (08:03→20:20)
[2019-02-08] MEDS: metFORMIN 500 MG TAB PO ×2 (08:09→17:34)
[2019-02-08] MEDS: DOCUSATE SODIUM 100 MG CAP PO ×3 (08:36→20:16)
[2019-02-08] MEDS: BETHANECHOL 25 MG TAB PO ×3 (08:36→20:20)
[2019-02-08] MEDS: FLUOXETINE 20 MG CAP PO (08:36)
[2019-02-08] MEDS: RISPERIDONE 2 MG TAB PO ×2 (08:36→20:15)
[2019-02-08] MEDS: FERROUS SULFATE (EC) 325 MG TAB PO ×2 (08:36→20:16)
[2019-02-08] MEDS: LINAGLIPTIN 5 MG TABLET PO (08:36)
[2019-02-08] MEDS: EMPAGLIFLOZIN 10 MG TABLET PO (08:37)
[2019-02-08] MEDS: GABAPENTIN 300 MG CAP PO ×3 (08:37→20:16)
[2019-02-08] MEDS: LUBIPROSTONE 24 MCG CAP PO ×2 (08:37→20:15)
[2019-02-08] MEDS: LISINOPRIL 5 MG TAB PO (08:37)
[2019-02-08] MEDS: SENNA TAB PO ×2 (08:38→20:15)
[2019-02-08] MEDS: FUROSEMIDE 40 MG TAB PO (08:38)
[2019-02-08] MEDS: LEVETIRACETAM 750 MG TAB PO ×2 (08:38→20:16)
[2019-02-08] MEDS: HYDROCODONE/APAP (5/325) TAB PO ×2 (08:42→13:57)
[2019-02-08] MEDS: INSULIN GLARGINE [LANTus] (100 UNITS/ML) SYG SC (08:46)
[2019-02-08] MEDS: NEOMYC/POLYMYX/BACIT 30 GM OINT TOP ×2 (10:28→20:18)
[2019-02-08] MEDS: HYDROmorphONE 2 MG TAB PO ×3 (10:29→19:30)
[2019-02-08] MEDS: EXENATIDE 250 MCG/ML 1.2ML PEN SC (17:25)
[2019-02-08] MEDS: ATORVASTATIN 40 MG TAB PO (20:15)
[2019-02-08] MEDS: ROPINIROLE 1 MG TAB PO (20:16)
[2019-02-09] MEDS: HYDROmorphONE 2 MG TAB PO ×5 (03:46→22:07)
[2019-02-09] MEDS: ACCU-CHEK XX ×6 (07:25→20:00)
[2019-02-09] MEDS: INSULIN ASPART [NOVOLOG] 3 ML PEN SC ×6 (07:55→20:49)
[2019-02-09] MEDS: FLUOXETINE 20 MG CAP PO (08:08)
[2019-02-09] MEDS: LUBIPROSTONE 24 MCG CAP PO ×2 (08:08→21:58)
[2019-02-09] MEDS: DOCUSATE SODIUM 100 MG CAP PO ×3 (08:08→21:58)
[2019-02-09] MEDS: LISINOPRIL 5 MG TAB PO (08:08)
[2019-02-09] MEDS: GABAPENTIN 300 MG CAP PO ×3 (08:08→21:58)
[2019-02-09] MEDS: RISPERIDONE 2 MG TAB PO ×2 (08:08→21:59)
[2019-02-09] MEDS: EMPAGLIFLOZIN 10 MG TABLET PO (08:08)
[2019-02-09] MEDS: FERROUS SULFATE (EC) 325 MG TAB PO ×2 (08:09→21:58)
[2019-02-09] MEDS: FUROSEMIDE 40 MG TAB PO (08:09)
[2019-02-09] MEDS: metFORMIN 500 MG TAB PO ×2 (08:09→17:30)
[2019-02-09] MEDS: SENNA TAB PO ×2 (08:09→21:58)
[2019-02-09] MEDS: EXENATIDE 250 MCG/ML 1.2ML PEN SC ×2 (08:10→17:30)
[2019-02-09] MEDS: LEVETIRACETAM 750 MG TAB PO ×2 (08:10→21:59)
[2019-02-09] MEDS ORDERED: INSULIN GLARGINE [LANTus] (100 UNITS/ML) SYG SC (09:00)
[2019-02-09] MEDS: BETHANECHOL 25 MG TAB PO ×3 (09:00→21:58)
[2019-02-09] MEDS: HYDROCODONE/APAP (5/325) TAB PO (11:17)
[2019-02-09] MEDS: NEOMYC/POLYMYX/BACIT 30 GM OINT TOP ×2 (11:17→21:59)
[2019-02-09] MEDS: ATORVASTATIN 40 MG TAB PO (21:58)
[2019-02-09] MEDS: ROPINIROLE 1 MG TAB PO (21:58)
[2019-02-10] MEDS: HYDROmorphONE 2 MG TAB PO ×4 (05:29→21:37)
[2019-02-10] MEDS: ACCU-CHEK XX ×6 (08:00→21:36)
[2019-02-10] MEDS: INSULIN ASPART [NOVOLOG] 3 ML PEN SC ×4 (08:00→21:00)
[2019-02-10] MEDS: DOCUSATE SODIUM 100 MG CAP PO ×3 (08:24→21:35)
[2019-02-10] MEDS: EMPAGLIFLOZIN 10 MG TABLET PO (08:24)
[2019-02-10] MEDS: BETHANECHOL 25 MG TAB PO ×3 (08:25→21:35)
[2019-02-10] MEDS: LISINOPRIL 5 MG TAB PO (08:25)
[2019-02-10] MEDS: GABAPENTIN 300 MG CAP PO ×3 (08:25→21:35)
[2019-02-10] MEDS: metFORMIN 500 MG TAB PO ×2 (08:25→17:20)
[2019-02-10] MEDS: SENNA TAB PO ×2 (08:25→21:35)
[2019-02-10] MEDS: LUBIPROSTONE 24 MCG CAP PO ×2 (08:25→21:35)
[2019-02-10] MEDS: FERROUS SULFATE (EC) 325 MG TAB PO ×2 (08:25→21:35)
[2019-02-10] MEDS: FLUOXETINE 20 MG CAP PO (08:25)
[2019-02-10] MEDS: RISPERIDONE 2 MG TAB PO ×2 (08:26→21:35)
[2019-02-10] MEDS: LEVETIRACETAM 750 MG TAB PO ×2 (08:26→21:35)
[2019-02-10] MEDS: FUROSEMIDE 40 MG TAB PO (08:26)
[2019-02-10] MEDS: NEOMYC/POLYMYX/BACIT 30 GM OINT TOP ×2 (08:28→21:36)
[2019-02-10] MEDS: EXENATIDE 250 MCG/ML 1.2ML PEN SC ×2 (08:29→17:24)
[2019-02-10] MEDS: HYDROCODONE/APAP (5/325) TAB PO (08:35)
[2019-02-10] MEDS: INSULIN GLARGINE [LANTus] (100 UNITS/ML) SYG SC (09:20)
[2019-02-10] MEDS: ATORVASTATIN 40 MG TAB PO (21:35)
[2019-02-10] MEDS: ROPINIROLE 1 MG TAB PO (21:35)
[2019-02-11] MEDS: ACCU-CHEK XX ×6 (07:00→20:00)
[2019-02-11] MEDS: INSULIN ASPART [NOVOLOG] 3 ML PEN SC ×4 (08:22→20:53)
[2019-02-11] MEDS: EXENATIDE 250 MCG/ML 1.2ML PEN SC ×2 (08:23→17:53)
[2019-02-11] MEDS: GABAPENTIN 300 MG CAP PO ×3 (08:25→20:50)
[2019-02-11] MEDS: FERROUS SULFATE (EC) 325 MG TAB PO ×2 (08:25→20:49)
[2019-02-11] MEDS: DOCUSATE SODIUM 100 MG CAP PO ×3 (08:25→20:49)
[2019-02-11] MEDS: FLUOXETINE 20 MG CAP PO (08:25)
[2019-02-11] MEDS: SENNA TAB PO ×2 (08:25→20:50)
[2019-02-11] MEDS: EMPAGLIFLOZIN 10 MG TABLET PO (08:25)
[2019-02-11] MEDS: FUROSEMIDE 40 MG TAB PO (08:26)
[2019-02-11] MEDS: RISPERIDONE 2 MG TAB PO ×2 (08:26→20:50)
[2019-02-11] MEDS: BETHANECHOL 25 MG TAB PO ×3 (08:26→20:49)
[2019-02-11] MEDS: LUBIPROSTONE 24 MCG CAP PO ×2 (08:26→20:50)
[2019-02-11] MEDS: LISINOPRIL 5 MG TAB PO (08:27)
[2019-02-11] MEDS: metFORMIN 500 MG TAB PO ×2 (08:27→17:52)
[2019-02-11] MEDS: LEVETIRACETAM 750 MG TAB PO ×2 (08:27→20:49)
[2019-02-11] MEDS: INSULIN GLARGINE [LANTus] (100 UNITS/ML) SYG SC (08:28)
[2019-02-11] MEDS: NEOMYC/POLYMYX/BACIT 30 GM OINT TOP ×2 (08:32→20:53)
[2019-02-11] MEDS: HYDROmorphONE 2 MG TAB PO ×3 (08:53→18:14)
[2019-02-11] MEDS: ATORVASTATIN 40 MG TAB PO (20:50)
[2019-02-11] MEDS: ROPINIROLE 1 MG TAB PO (20:50)
[2019-02-12] MEDS: HYDROmorphONE 2 MG TAB PO ×4 (02:20→20:41)
[2019-02-12] MEDS: ACCU-CHEK XX ×6 (08:23→20:00)
[2019-02-12] MEDS: EXENATIDE 250 MCG/ML 1.2ML PEN SC ×2 (08:27→17:50)
[2019-02-12] MEDS: INSULIN ASPART [NOVOLOG] 3 ML PEN SC ×4 (08:29→20:53)
[2019-02-12] MEDS: INSULIN GLARGINE [LANTus] (100 UNITS/ML) SYG SC (08:30)
[2019-02-12] MEDS: LISINOPRIL 5 MG TAB PO (08:32)
[2019-02-12] MEDS: LUBIPROSTONE 24 MCG CAP PO ×2 (08:32→20:41)
[2019-02-12] MEDS: FLUOXETINE 20 MG CAP PO (08:33)
[2019-02-12] MEDS: RISPERIDONE 2 MG TAB PO ×2 (08:33→20:42)
[2019-02-12] MEDS: FUROSEMIDE 40 MG TAB PO (08:33)
[2019-02-12] MEDS: DOCUSATE SODIUM 100 MG CAP PO ×3 (08:34→20:44)
[2019-02-12] MEDS: BETHANECHOL 25 MG TAB PO ×3 (08:34→20:42)
[2019-02-12] MEDS: FERROUS SULFATE (EC) 325 MG TAB PO ×2 (08:34→17:48)
[2019-02-12] MEDS: SENNA TAB PO ×2 (08:34→20:44)
[2019-02-12] MEDS: metFORMIN 500 MG TAB PO ×2 (08:34→17:49)
[2019-02-12] MEDS: LEVETIRACETAM 750 MG TAB PO ×2 (08:35→20:41)
[2019-02-12] MEDS: GABAPENTIN 300 MG CAP PO ×3 (08:35→20:44)
[2019-02-12] MEDS: EMPAGLIFLOZIN 10 MG TABLET PO (08:35)
[2019-02-12] MEDS: NEOMYC/POLYMYX/BACIT 30 GM OINT TOP ×2 (12:39→20:51)
[2019-02-12] MEDS: ONDANSETRON 4 MG INJ IV ×2 (13:48→20:48)
[2019-02-12] MEDS: ATORVASTATIN 40 MG TAB PO (20:41)
[2019-02-12] MEDS: ROPINIROLE 1 MG TAB PO (20:42)
[2019-02-13] MEDS: HYDROCODONE/APAP (5/325) TAB PO (08:11)
[2019-02-13] MEDS: LEVETIRACETAM 750 MG TAB PO ×2 (08:14→21:22)
[2019-02-13] MEDS: SENNA TAB PO ×2 (08:14→21:22)
[2019-02-13] MEDS: metFORMIN 500 MG TAB PO ×2 (08:14→17:25)
[2019-02-13] MEDS: LUBIPROSTONE 24 MCG CAP PO ×2 (08:14→21:22)
[2019-02-13] MEDS: GABAPENTIN 300 MG CAP PO ×3 (08:14→21:22)
[2019-02-13] MEDS: BETHANECHOL 25 MG TAB PO ×3 (08:14→21:22)
[2019-02-13] MEDS: RISPERIDONE 2 MG TAB PO ×2 (08:14→21:22)
[2019-02-13] MEDS: FLUOXETINE 20 MG CAP PO (08:14)
[2019-02-13] MEDS: DOCUSATE SODIUM 100 MG CAP PO ×3 (08:15→21:22)
[2019-02-13] MEDS: EMPAGLIFLOZIN 10 MG TABLET PO (08:15)
[2019-02-13] MEDS: ACCU-CHEK XX ×6 (08:16→21:23)
[2019-02-13] MEDS: EXENATIDE 250 MCG/ML 1.2ML PEN SC ×2 (08:16→17:26)
[2019-02-13] MEDS: INSULIN ASPART [NOVOLOG] 3 ML PEN SC ×4 (08:18→21:00)
[2019-02-13] MEDS: LISINOPRIL 5 MG TAB PO (08:19)
[2019-02-13] MEDS: INSULIN GLARGINE [LANTus] (100 UNITS/ML) SYG SC (08:19)
[2019-02-13] MEDS: NEOMYC/POLYMYX/BACIT 30 GM OINT TOP ×2 (08:19→21:23)
[2019-02-13] MEDS: FUROSEMIDE 40 MG TAB PO (08:20)
[2019-02-13] MEDS: HYDROmorphONE 2 MG TAB PO ×2 (11:11→19:46)
[2019-02-13] MEDS: FERROUS SULFATE (EC) 325 MG TAB PO (17:25)
[2019-02-13] MEDS: ATORVASTATIN 40 MG TAB PO (21:22)
[2019-02-13] MEDS: ROPINIROLE 1 MG TAB PO (21:22)
[2019-02-14] MEDS: ACCU-CHEK XX ×6 (07:00→20:00)
[2019-02-14] MEDS: RISPERIDONE 2 MG TAB PO ×2 (08:18→20:39)
[2019-02-14] MEDS: NEOMYC/POLYMYX/BACIT 30 GM OINT TOP ×2 (08:18→20:40)
[2019-02-14] MEDS: GABAPENTIN 300 MG CAP PO ×3 (08:18→20:39)
[2019-02-14] MEDS: LUBIPROSTONE 24 MCG CAP PO ×2 (08:18→20:37)
[2019-02-14] MEDS: FLUOXETINE 20 MG CAP PO (08:18)
[2019-02-14] MEDS: FUROSEMIDE 40 MG TAB PO (08:18)
[2019-02-14] MEDS: DOCUSATE SODIUM 100 MG CAP PO ×3 (08:18→20:40)
[2019-02-14] MEDS: BETHANECHOL 25 MG TAB PO ×3 (08:19→20:40)
[2019-02-14] MEDS: LISINOPRIL 5 MG TAB PO (08:19)
[2019-02-14] MEDS: SENNA TAB PO ×2 (08:19→20:40)
[2019-02-14] MEDS: EXENATIDE 250 MCG/ML 1.2ML PEN SC ×2 (08:21→17:42)
[2019-02-14] MEDS: EMPAGLIFLOZIN 10 MG TABLET PO (08:22)
[2019-02-14] MEDS: metFORMIN 500 MG TAB PO ×2 (08:22→17:38)
[2019-02-14] MEDS: INSULIN ASPART [NOVOLOG] 3 ML PEN SC ×4 (08:23→20:43)
[2019-02-14] MEDS: LEVETIRACETAM 750 MG TAB PO ×2 (08:47→20:37)
[2019-02-14] MEDS: INSULIN GLARGINE [LANTus] (100 UNITS/ML) SYG SC (08:55)
[2019-02-14] MEDS: SOD CHLORIDE 0.9% 250 ML IV ×2 (13:34→13:54)
[2019-02-14] MEDS: HYDROmorphONE 2 MG TAB PO (14:36)
[2019-02-14] MEDS: FERROUS SULFATE (EC) 325 MG TAB PO (17:35)
[2019-02-14] MEDS: ROPINIROLE 1 MG TAB PO (20:37)
[2019-02-14] MEDS: ATORVASTATIN 40 MG TAB PO (20:39)
[2019-02-14] MEDS: ONDANSETRON 4 MG INJ IV (20:51)
[2019-02-15 06:16] LABS: ANION GAP 23 (5-13); BLOOD UREA NITROGEN 36 mg/dl (7-20); CALCIUM 8.4 mg/dl (8.4-10.2); CARBON DIOXIDE 16 mmol/L (21-31); CHLORIDE 95 mmol/L (97-110); CREATININE 1.36 mg/dl (0.44-1.00); Estimated GFR 39 mL/min (>60); GLUCOSE 287 mg/dl (70-220); SODIUM 134 mmol/L (135-144)
[2019-02-15 06:47] LABS: POTASSIUM 5.4 mmol/L (3.5-5.1)
[2019-02-15] MEDS: ACCU-CHEK XX ×6 (07:00→20:00)
[2019-02-15] MEDS: EMPAGLIFLOZIN 10 MG TABLET PO (08:18)
[2019-02-15] MEDS: metFORMIN 850 MG TAB PO ×2 (08:18→17:27)
[2019-02-15] MEDS: BETHANECHOL 25 MG TAB PO ×3 (08:18→21:17)
[2019-02-15] MEDS: FLUOXETINE 20 MG CAP PO (08:18)
[2019-02-15] MEDS: DOCUSATE SODIUM 100 MG CAP PO ×3 (08:19→21:16)
[2019-02-15] MEDS: LEVETIRACETAM 750 MG TAB PO ×2 (08:19→21:18)
[2019-02-15] MEDS: RISPERIDONE 2 MG TAB PO ×2 (08:19→21:17)
[2019-02-15] MEDS: SENNA TAB PO ×2 (08:19→21:17)
[2019-02-15] MEDS: GABAPENTIN 300 MG CAP PO ×3 (08:19→21:16)
[2019-02-15] MEDS: NEOMYC/POLYMYX/BACIT 30 GM OINT TOP ×2 (08:22→21:27)
[2019-02-15] MEDS: EXENATIDE 250 MCG/ML 1.2ML PEN SC ×2 (08:23→17:28)
[2019-02-15] MEDS: INSULIN ASPART [NOVOLOG] 3 ML PEN SC ×5 (08:24→21:20)
[2019-02-15] MEDS: INSULIN GLARGINE [LANTus] (100 UNITS/ML) SYG SC ×2 (08:24→09:38)
[2019-02-15] MEDS: SODIUM POLYSTYRENE 15 GM KIT (POWDER + SORBITOL) PO (08:25)
[2019-02-15] MEDS: FUROSEMIDE 40 MG TAB PO (08:25)
[2019-02-15] MEDS: LISINOPRIL 5 MG TAB PO (08:25)
[2019-02-15] MEDS: LUBIPROSTONE 24 MCG CAP PO ×2 (08:25→21:18)
[2019-02-15] MEDS: FERROUS SULFATE (EC) 325 MG TAB PO (17:27)
[2019-02-15] MEDS: ONDANSETRON 4 MG INJ IV (19:55)
[2019-02-15] MEDS: HYDROmorphONE 2 MG TAB PO ×2 (20:00→23:37)
[2019-02-15] MEDS: CITRIC ACID/NA CITRATE 30 ML CUP PO (21:16)
[2019-02-15] MEDS: ROPINIROLE 1 MG TAB PO (21:17)
[2019-02-15] MEDS: ATORVASTATIN 40 MG TAB PO (21:17)
[2019-02-16 05:43] LABS: ADD MAN DIFF? NO
[2019-02-16 05:46] LABS: BASOPHILS % 0.5 % (0.0-2.0); EOSINOPHILS # 0.1 10^3/ul (0.0-0.5); EOSINOPHILS % 1.7 % (0.0-7.0); HEMATOCRIT 27.5 % (37.0-47.0); HEMOGLOBIN 8.8 g/dl (12.0-16.0); LYMPHOCYTES # 0.8 10^3/ul (0.8-2.9); LYMPHOCYTES % 12.8 % (15.0-51.0); MEAN CORPUSCULAR HEMOGLOBIN 26.8 pg (29.0-33.0); MEAN CORPUSCULAR VOLUME 83.8 fl (82.0-101.0); MEAN PLATELET VOLUME 10.2 fl (7.4-10.4); MONOCYTE # 0.3 10^3/ul (0.3-0.9); MONOCYTES % 5.4 % (0.0-11.0); NEUTROPHILS % 79.1 % (39.0-77.0); PLATELET COUNT 284 10^3/UL (140-415); RED BLOOD COUNT 3.28 10^6/ul (4.20-5.40)
[2019-02-16 05:46] LABS: WHITE BLOOD COUNT 6.3 10^3/ul (4.8-10.8)
[2019-02-16 06:12] LABS: ANION GAP 12 (5-13); BLOOD UREA NITROGEN 40 mg/dl (7-20); CALCIUM 8.6 mg/dl (8.4-10.2); CARBON DIOXIDE 26 mmol/L (21-31); CHLORIDE 97 mmol/L (97-110); CREATININE 1.41 mg/dl (0.44-1.00); Estimated GFR 38 mL/min (>60); GLUCOSE 220 mg/dl (70-220); SODIUM 135 mmol/L (135-144)
[2019-02-16 06:24] LABS: POTASSIUM 3.8 mmol/L (3.5-5.1)
[2019-02-16 06:35] LABS: LIPASE 32 U/L (23-300)
[2019-02-16] MEDS: ACCU-CHEK XX ×6 (07:00→20:00)
[2019-02-16 08:39] LABS: ERYTHROCYTE SEDIMENTATION RATE 67 mm/Hr (0-30)
[2019-02-16] MEDS: CITRIC ACID/NA CITRATE 30 ML CUP PO ×3 (08:46→21:00)
[2019-02-16] MEDS: FLUOXETINE 20 MG CAP PO (08:47)
[2019-02-16] MEDS: FUROSEMIDE 40 MG TAB PO (08:47)
[2019-02-16] MEDS: GABAPENTIN 300 MG CAP PO ×3 (08:47→21:02)
[2019-02-16] MEDS: LEVETIRACETAM 750 MG TAB PO ×2 (08:47→21:01)
[2019-02-16] MEDS: SENNA TAB PO ×2 (08:47→21:01)
[2019-02-16] MEDS: metFORMIN 850 MG TAB PO (08:48)
[2019-02-16] MEDS: RISPERIDONE 2 MG TAB PO ×2 (08:48→21:00)
[2019-02-16] MEDS: LUBIPROSTONE 24 MCG CAP PO ×2 (08:48→21:01)
[2019-02-16] MEDS: DOCUSATE SODIUM 100 MG CAP PO ×3 (08:48→21:01)
[2019-02-16] MEDS: LISINOPRIL 5 MG TAB PO (08:48)
[2019-02-16] MEDS: BETHANECHOL 25 MG TAB PO ×3 (08:48→21:00)
[2019-02-16] MEDS: EMPAGLIFLOZIN 10 MG TABLET PO (08:49)
[2019-02-16] MEDS: EXENATIDE 250 MCG/ML 1.2ML PEN SC (08:50)
[2019-02-16] MEDS: NEOMYC/POLYMYX/BACIT 30 GM OINT TOP ×2 (08:50→21:04)
[2019-02-16] MEDS: INSULIN GLARGINE [LANTus] (100 UNITS/ML) SYG SC (08:55)
[2019-02-16] MEDS: INSULIN ASPART [NOVOLOG] 3 ML PEN SC ×5 (08:56→21:00)
[2019-02-16] MEDS: ONDANSETRON 4 MG INJ IV (10:36)
[2019-02-16] MEDS: AL HYDROX/MG HYDROX/SIMETH 30 ML CUP PO (10:36)
[2019-02-16] MEDS: HYDROmorphONE 2 MG TAB PO ×2 (10:47→22:14)
[2019-02-16] MEDS ORDERED: REPAGLINIDE 1 MG TAB PO (11:30)
[2019-02-16] MEDS: SOD CHLORIDE 0.45% 1,000 ML IV (14:40)
[2019-02-16] MEDS ORDERED: EXENATIDE 250 MCG/ML 1.2ML PEN SC (17:30)
[2019-02-16] MEDS: FERROUS SULFATE (EC) 325 MG TAB PO (17:47)
[2019-02-16] MEDS: metFORMIN 500 MG TAB PO (17:48)
[2019-02-16] MEDS: NACL 0.9% 3 ML SYG IV (18:20)
[2019-02-16] MEDS: ROPINIROLE 1 MG TAB PO (21:01)
[2019-02-16] MEDS: ATORVASTATIN 40 MG TAB PO (21:01)
[2019-02-17] MEDS: SOD CHLORIDE 0.45% 1,000 ML IV (06:35)
[2019-02-17] MEDS: ACCU-CHEK XX ×6 (07:00→21:49)
[2019-02-17] MEDS: CITRIC ACID/NA CITRATE 30 ML CUP PO ×5 (08:29→21:43)
[2019-02-17] MEDS: FLUOXETINE 20 MG CAP PO (08:30)
[2019-02-17] MEDS: RISPERIDONE 2 MG TAB PO ×2 (08:30→21:43)
[2019-02-17] MEDS: LISINOPRIL 5 MG TAB PO (08:31)
[2019-02-17] MEDS: FUROSEMIDE 40 MG TAB PO (08:31)
[2019-02-17] MEDS: SENNA TAB PO ×2 (08:32→21:00)
[2019-02-17] MEDS: LUBIPROSTONE 24 MCG CAP PO ×2 (08:32→21:43)
[2019-02-17] MEDS: LEVETIRACETAM 750 MG TAB PO ×2 (08:32→21:43)
[2019-02-17] MEDS: GABAPENTIN 300 MG CAP PO ×3 (08:32→21:43)
[2019-02-17] MEDS: BETHANECHOL 25 MG TAB PO ×3 (08:32→21:43)
[2019-02-17] MEDS: DOCUSATE SODIUM 100 MG CAP PO ×3 (08:33→21:00)
[2019-02-17] MEDS: NEOMYC/POLYMYX/BACIT 30 GM OINT TOP ×2 (08:33→21:44)
[2019-02-17] MEDS: INSULIN GLARGINE [LANTus] (100 UNITS/ML) SYG SC (08:39)
[2019-02-17] MEDS: INSULIN ASPART [NOVOLOG] 3 ML PEN SC ×7 (08:40→21:00)
[2019-02-17] MEDS: EMPAGLIFLOZIN 10 MG TABLET PO (08:41)
[2019-02-17] MEDS: metFORMIN 500 MG TAB PO ×2 (08:41→17:20)
[2019-02-17] MEDS ORDERED: INSULIN GLARGINE [LANTus] (100 UNITS/ML) SYG SC (10:00)
[2019-02-17] MEDS: HYDROmorphONE 2 MG TAB PO ×2 (16:50→22:15)
[2019-02-17] MEDS: FERROUS SULFATE (EC) 325 MG TAB PO (17:19)
[2019-02-17] MEDS: METOCLOPRAMIDE 10 MG INJ IV (17:20)
[2019-02-17 18:59] LABS: OCCULT BLOOD STOOL NEGATIVE (NEGATIVE)
[2019-02-17] MEDS: ATORVASTATIN 40 MG TAB PO (21:43)
[2019-02-17] MEDS: ROPINIROLE 1 MG TAB PO (21:43)
[2019-02-17] MEDS: GLUCOSE GEL 15 GRAM TUBE PO (21:54)
[2019-02-17] MEDS ORDERED: DEXTROSE 5%-0.45% NACL 500 ML IV (23:00)
[2019-02-17] MEDS ORDERED: DEXTROSE 5%-0.45% NACL 1,000 ML IV (23:00)
[2019-02-17] MEDS: DEXTROSE 5%-0.45% NACL 1,000 ML IV (23:27)
[2019-02-18] MEDS: METOCLOPRAMIDE 10 MG INJ IV ×4 (00:34→18:00)
[2019-02-18 06:16] LABS: RETICULOCYTE COUNT # 0.057 X10^6 (0.020-0.110); RETICULOCYTE COUNT % 1.9 % (0.5-1.5)
[2019-02-18 06:16] LABS: RETICULOCYTE RBC 3.01
[2019-02-18] MEDS: ACCU-CHEK XX ×6 (07:00→20:00)
[2019-02-18 07:46] LABS: FOLATE 6.8 ng/ml (2.8-20.0)
[2019-02-18] MEDS: RISPERIDONE 2 MG TAB PO ×2 (09:01→20:22)
[2019-02-18] MEDS: EMPAGLIFLOZIN 10 MG TABLET PO (09:01)
[2019-02-18] MEDS: SENNA TAB PO ×2 (09:01→20:21)
[2019-02-18] MEDS: LEVETIRACETAM 750 MG TAB PO ×2 (09:01→20:22)
[2019-02-18] MEDS: DOCUSATE SODIUM 100 MG CAP PO ×3 (09:01→20:21)
[2019-02-18] MEDS: LUBIPROSTONE 24 MCG CAP PO ×2 (09:01→20:22)
[2019-02-18] MEDS: GABAPENTIN 300 MG CAP PO ×3 (09:02→20:23)
[2019-02-18] MEDS: FLUOXETINE 20 MG CAP PO (09:02)
[2019-02-18] MEDS: CITRIC ACID/NA CITRATE 30 ML CUP PO ×3 (09:02→20:23)
[2019-02-18] MEDS: LISINOPRIL 5 MG TAB PO (09:02)
[2019-02-18] MEDS: BETHANECHOL 25 MG TAB PO ×3 (09:02→20:22)
[2019-02-18] MEDS: metFORMIN 500 MG TAB PO ×2 (09:02→18:35)
[2019-02-18] MEDS: NEOMYC/POLYMYX/BACIT 30 GM OINT TOP ×2 (09:03→20:23)
[2019-02-18] MEDS: FUROSEMIDE 40 MG TAB PO (09:03)
[2019-02-18] MEDS: INSULIN ASPART [NOVOLOG] 3 ML PEN SC ×7 (09:10→20:21)
[2019-02-18] MEDS: INSULIN GLARGINE [LANTus] (100 UNITS/ML) SYG SC (09:35)
[2019-02-18] MEDS: HYDROmorphONE 2 MG TAB PO ×2 (12:42→20:22)
[2019-02-18] MEDS: FERROUS SULFATE (EC) 325 MG TAB PO (18:35)
[2019-02-18] MEDS: ATORVASTATIN 40 MG TAB PO (20:22)
[2019-02-18] MEDS: ROPINIROLE 1 MG TAB PO (20:22)
[2019-02-18 21:41] LABS: ADD MAN DIFF? NO
[2019-02-18 21:42] LABS: HEMATOCRIT 27.5 % (37.0-47.0); HEMOGLOBIN 8.6 g/dl (12.0-16.0); MEAN CORPUSCULAR VOLUME 85.9 fl (82.0-101.0)
[2019-02-18 21:42] LABS: WHITE BLOOD COUNT 5.3 10^3/ul (4.8-10.8)
[2019-02-18 21:43] LABS: BASOPHILS % 0.6 % (0.0-2.0); EOSINOPHILS # 0.2 10^3/ul (0.0-0.5); EOSINOPHILS % 3.2 % (0.0-7.0); LYMPHOCYTES # 0.7 10^3/ul (0.8-2.9); LYMPHOCYTES % 13.1 % (15.0-51.0); MEAN CORPUSCULAR HEMOGLOBIN 26.9 pg (29.0-33.0); MEAN CORPUSCULAR HGB CONC 31.3 g/dl (32.0-37.0); MEAN PLATELET VOLUME 10.7 fl (7.4-10.4); MONOCYTE # 0.4 10^3/ul (0.3-0.9); MONOCYTES % 7.6 % (0.0-11.0); NEUTROPHIL # 3.9 10^3/ul (1.6-7.5); NEUTROPHILS % 74.9 % (39.0-77.0); PLATELET COUNT 196 10^3/UL (140-415); RED CELL DISTRIBUTION WIDTH 13.6 % (11.5-14.5)
[2019-02-18 21:58] LABS: ANION GAP 7 (5-13); BLOOD UREA NITROGEN 16 mg/dl (7-20); CALCIUM 8.5 mg/dl (8.4-10.2); CARBON DIOXIDE 29 mmol/L (21-31); CHLORIDE 99 mmol/L (97-110); CREATININE 0.93 mg/dl (0.44-1.00); Estimated GFR > 60 mL/min (>60); GLUCOSE 120 mg/dl (70-220); SODIUM 135 mmol/L (135-144)
[2019-02-18] MEDS: CEFAZOLIN 1 GM/50 ML (PMX) 50 ML IVPB (22:21)
[2019-02-19] MEDS: METOCLOPRAMIDE 10 MG INJ IV ×4 (00:31→17:51)
[2019-02-19] MEDS: HYDROmorphONE 2 MG TAB PO ×3 (03:59→20:41)
[2019-02-19] MEDS: CEFAZOLIN 1 GM/50 ML (PMX) 50 ML IVPB ×3 (05:42→20:57)
[2019-02-19 06:06] LABS: ANION GAP 6 (5-13); BLOOD UREA NITROGEN 15 mg/dl (7-20); CALCIUM 8.7 mg/dl (8.4-10.2); CARBON DIOXIDE 30 mmol/L (21-31); CHLORIDE 103 mmol/L (97-110); CREATININE 0.88 mg/dl (0.44-1.00); Estimated GFR > 60 mL/min (>60); GLUCOSE 108 mg/dl (70-220); POTASSIUM 3.6 mmol/L (3.5-5.1); SODIUM 139 mmol/L (135-144)
[2019-02-19] MEDS: ACCU-CHEK XX ×6 (08:42→20:36)
[2019-02-19] MEDS: INSULIN ASPART [NOVOLOG] 3 ML PEN SC ×7 (08:53→20:36)
[2019-02-19] MEDS: NEOMYC/POLYMYX/BACIT 30 GM OINT TOP ×2 (08:55→20:46)
[2019-02-19] MEDS: INSULIN GLARGINE [LANTus] (100 UNITS/ML) SYG SC (08:55)
[2019-02-19] MEDS: FLUOXETINE 20 MG CAP PO (08:56)
[2019-02-19] MEDS: GABAPENTIN 300 MG CAP PO ×3 (08:56→20:40)
[2019-02-19] MEDS: metFORMIN 500 MG TAB PO ×2 (08:56→17:51)
[2019-02-19] MEDS: LEVETIRACETAM 750 MG TAB PO ×2 (08:56→20:37)
[2019-02-19] MEDS: BETHANECHOL 25 MG TAB PO ×3 (08:56→20:39)
[2019-02-19] MEDS: RISPERIDONE 2 MG TAB PO ×2 (08:57→20:40)
[2019-02-19] MEDS: EMPAGLIFLOZIN 10 MG TABLET PO (08:57)
[2019-02-19] MEDS: DOCUSATE SODIUM 100 MG CAP PO ×3 (08:59→20:45)
[2019-02-19] MEDS: LISINOPRIL 5 MG TAB PO (08:59)
[2019-02-19] MEDS: LUBIPROSTONE 24 MCG CAP PO ×2 (08:59→20:38)
[2019-02-19] MEDS: SENNA TAB PO ×2 (08:59→20:45)
[2019-02-19] MEDS: CITRIC ACID/NA CITRATE 30 ML CUP PO ×3 (09:00→20:37)
[2019-02-19] MEDS: DEXTROSE 50% 50 ML SYRINGE IV (16:02)
[2019-02-19] MEDS: FERROUS SULFATE (EC) 325 MG TAB PO (17:53)
[2019-02-19] MEDS: NACL 0.9% 3 ML SYG IV (17:58)
[2019-02-19] MEDS: SUMATRIPTAN 50 MG TAB PO (20:00)
[2019-02-19] MEDS: ATORVASTATIN 40 MG TAB PO (20:37)
[2019-02-19] MEDS: ROPINIROLE 1 MG TAB PO (20:39)
[2019-02-20] MEDS: CEFAZOLIN 1 GM/50 ML (PMX) 50 ML IVPB ×3 (05:32→21:55)
[2019-02-20] MEDS: ACCU-CHEK XX ×6 (07:00→20:00)
[2019-02-20] MEDS: BETHANECHOL 25 MG TAB PO ×3 (08:49→21:53)
[2019-02-20] MEDS: RISPERIDONE 2 MG TAB PO ×2 (08:49→21:53)
[2019-02-20] MEDS: SENNA TAB PO ×2 (08:49→21:54)
[2019-02-20] MEDS: metFORMIN 500 MG TAB PO ×2 (08:49→18:01)
[2019-02-20] MEDS: LEVETIRACETAM 750 MG TAB PO ×2 (08:49→21:52)
[2019-02-20] MEDS: DOCUSATE SODIUM 100 MG CAP PO ×3 (08:49→21:55)
[2019-02-20] MEDS: FLUOXETINE 20 MG CAP PO (08:50)
[2019-02-20] MEDS: EMPAGLIFLOZIN 10 MG TABLET PO (08:50)
[2019-02-20] MEDS: LUBIPROSTONE 24 MCG CAP PO ×2 (08:51→21:54)
[2019-02-20] MEDS: GABAPENTIN 300 MG CAP PO ×3 (08:51→21:54)
[2019-02-20] MEDS: LISINOPRIL 5 MG TAB PO (08:51)
[2019-02-20] MEDS: NEOMYC/POLYMYX/BACIT 30 GM OINT TOP ×2 (08:52→21:56)
[2019-02-20] MEDS: INSULIN ASPART [NOVOLOG] 3 ML PEN SC ×7 (08:56→21:00)
[2019-02-20] MEDS: INSULIN GLARGINE [LANTus] (100 UNITS/ML) SYG SC (09:35)
[2019-02-20] MEDS: NACL 0.9% 3 ML SYG IV (09:36)
[2019-02-20] MEDS: HYDROmorphONE 2 MG TAB PO ×2 (10:22→16:01)
[2019-02-20] MEDS: FERROUS SULFATE (EC) 325 MG TAB PO (18:01)
[2019-02-20] MEDS: ROPINIROLE 1 MG TAB PO (21:52)
[2019-02-20] MEDS: ATORVASTATIN 40 MG TAB PO (21:53)
[2019-02-21] MEDS: CEFAZOLIN 1 GM/50 ML (PMX) 50 ML IVPB ×3 (05:52→21:51)
[2019-02-21] MEDS: ACCU-CHEK XX ×6 (07:00→20:00)
[2019-02-21] MEDS: metFORMIN 500 MG TAB PO ×2 (08:26→17:47)
[2019-02-21] MEDS: BETHANECHOL 25 MG TAB PO ×3 (08:27→20:42)
[2019-02-21] MEDS: FLUOXETINE 20 MG CAP PO (08:27)
[2019-02-21] MEDS: SENNA TAB PO ×2 (08:27→20:43)
[2019-02-21] MEDS: RISPERIDONE 2 MG TAB PO ×2 (08:27→20:43)
[2019-02-21] MEDS: LISINOPRIL 5 MG TAB PO (08:27)
[2019-02-21] MEDS: GABAPENTIN 300 MG CAP PO ×3 (08:27→20:42)
[2019-02-21] MEDS: LEVETIRACETAM 750 MG TAB PO ×2 (08:27→20:44)
[2019-02-21] MEDS: LUBIPROSTONE 24 MCG CAP PO ×2 (08:27→20:44)
[2019-02-21] MEDS: DOCUSATE SODIUM 100 MG CAP PO ×3 (08:27→20:43)
[2019-02-21] MEDS: EMPAGLIFLOZIN 10 MG TABLET PO (08:28)
[2019-02-21] MEDS: INSULIN ASPART [NOVOLOG] 3 ML PEN SC ×7 (08:30→20:44)
[2019-02-21] MEDS: NEOMYC/POLYMYX/BACIT 30 GM OINT TOP ×2 (08:32→20:45)
[2019-02-21] MEDS: INSULIN GLARGINE [LANTus] (100 UNITS/ML) SYG SC (08:32)
[2019-02-21] MEDS: HYDROmorphONE 2 MG TAB PO ×2 (10:23→20:43)
[2019-02-21] MEDS: FERROUS SULFATE (EC) 325 MG TAB PO (17:47)
[2019-02-21] MEDS: ATORVASTATIN 40 MG TAB PO (20:43)
[2019-02-21] MEDS: ROPINIROLE 1 MG TAB PO (20:44)
[2019-02-21] MEDS: ZOLPIDEM 5 MG TAB PO (21:55)
[2019-02-22] MEDS: CEFAZOLIN 1 GM/50 ML (PMX) 50 ML IVPB ×3 (05:37→23:50)
[2019-02-22 06:05] LABS: ADD MAN DIFF? NO
[2019-02-22 06:11] LABS: WHITE BLOOD COUNT 4.2 10^3/ul (4.8-10.8)
[2019-02-22 06:11] LABS: BASOPHILS % 0.7 % (0.0-2.0); EOSINOPHILS # 0.1 10^3/ul (0.0-0.5); EOSINOPHILS % 3.3 % (0.0-7.0); HEMATOCRIT 26.2 % (37.0-47.0); HEMOGLOBIN 8.3 g/dl (12.0-16.0); LYMPHOCYTES # 0.9 10^3/ul (0.8-2.9); LYMPHOCYTES % 20.3 % (15.0-51.0); MEAN CORPUSCULAR HEMOGLOBIN 26.9 pg (29.0-33.0); MEAN CORPUSCULAR HGB CONC 31.7 g/dl (32.0-37.0); MEAN CORPUSCULAR VOLUME 85.1 fl (82.0-101.0); MEAN PLATELET VOLUME 10.9 fl (7.4-10.4); MONOCYTE # 0.4 10^3/ul (0.3-0.9); MONOCYTES % 10.4 % (0.0-11.0); NEUTROPHIL # 2.7 10^3/ul (1.6-7.5); NEUTROPHILS % 64.6 % (39.0-77.0); PLATELET COUNT 229 10^3/UL (140-415); RED BLOOD COUNT 3.08 10^6/ul (4.20-5.40)
[2019-02-22 06:42] LABS: ANION GAP 7 (5-13); BLOOD UREA NITROGEN 11 mg/dl (7-20); CALCIUM 8.8 mg/dl (8.4-10.2); CARBON DIOXIDE 26 mmol/L (21-31); CHLORIDE 105 mmol/L (97-110); CREATININE 0.85 mg/dl (0.44-1.00); Estimated GFR > 60 mL/min (>60); GLUCOSE 227 mg/dl (70-220); POTASSIUM 4.8 mmol/L (3.5-5.1); SODIUM 138 mmol/L (135-144)
[2019-02-22] MEDS: ACCU-CHEK XX ×6 (07:00→20:00)
[2019-02-22] MEDS: metFORMIN 500 MG TAB PO ×2 (08:34→17:48)
[2019-02-22] MEDS: INSULIN ASPART [NOVOLOG] 3 ML PEN SC ×7 (08:36→21:00)
[2019-02-22] MEDS: INSULIN GLARGINE [LANTus] (100 UNITS/ML) SYG SC (08:37)
[2019-02-22] MEDS: LISINOPRIL 5 MG TAB PO (08:38)
[2019-02-22] MEDS: LUBIPROSTONE 24 MCG CAP PO ×2 (08:39→20:15)
[2019-02-22] MEDS: FLUOXETINE 20 MG CAP PO (08:39)
[2019-02-22] MEDS: DOCUSATE SODIUM 100 MG CAP PO ×3 (08:39→20:15)
[2019-02-22] MEDS: RISPERIDONE 2 MG TAB PO ×2 (08:39→20:15)
[2019-02-22] MEDS: LEVETIRACETAM 750 MG TAB PO ×2 (08:39→20:15)
[2019-02-22] MEDS: GABAPENTIN 300 MG CAP PO ×3 (08:39→20:15)
[2019-02-22] MEDS: SENNA TAB PO ×2 (08:39→20:15)
[2019-02-22] MEDS: BETHANECHOL 25 MG TAB PO ×3 (08:39→20:15)
[2019-02-22] MEDS: EMPAGLIFLOZIN 10 MG TABLET PO (08:40)
[2019-02-22] MEDS: NEOMYC/POLYMYX/BACIT 30 GM OINT TOP ×2 (08:40→21:47)
[2019-02-22] MEDS: HYDROmorphONE 2 MG TAB PO ×2 (12:07→20:15)
[2019-02-22] MEDS: FERROUS SULFATE (EC) 325 MG TAB PO (17:47)
[2019-02-22] MEDS: ROPINIROLE 1 MG TAB PO (20:15)
[2019-02-22] MEDS: ATORVASTATIN 40 MG TAB PO (20:15)
[2019-02-23 05:29] LABS: ADD MAN DIFF? NO
[2019-02-23 05:33] LABS: BASOPHILS % 0.9 % (0.0-2.0); EOSINOPHILS # 0.2 10^3/ul (0.0-0.5); EOSINOPHILS % 4.1 % (0.0-7.0); HEMATOCRIT 25.8 % (37.0-47.0); LYMPHOCYTES % 22.4 % (15.0-51.0); MEAN CORPUSCULAR HEMOGLOBIN 26.9 pg (29.0-33.0); MEAN CORPUSCULAR VOLUME 86.9 fl (82.0-101.0); MONOCYTE # 0.6 10^3/ul (0.3-0.9); MONOCYTES % 12.1 % (0.0-11.0); NEUTROPHIL # 2.8 10^3/ul (1.6-7.5); NEUTROPHILS % 59.9 % (39.0-77.0); PLATELET COUNT 222 10^3/UL (140-415); RED BLOOD COUNT 2.97 10^6/ul (4.20-5.40); RED CELL DISTRIBUTION WIDTH 15.1 % (11.5-14.5)
[2019-02-23 05:33] LABS: WHITE BLOOD COUNT 4.6 10^3/ul (4.8-10.8)
[2019-02-23 06:15] LABS: ANION GAP 5 (5-13); BLOOD UREA NITROGEN 13 mg/dl (7-20); CALCIUM 8.7 mg/dl (8.4-10.2); CARBON DIOXIDE 26 mmol/L (21-31); CHLORIDE 107 mmol/L (97-110); CREATININE 0.88 mg/dl (0.44-1.00); Estimated GFR > 60 mL/min (>60); GLUCOSE 182 mg/dl (70-220); POTASSIUM 4.5 mmol/L (3.5-5.1); SODIUM 138 mmol/L (135-144)
[2019-02-23] MEDS: CEFAZOLIN 1 GM/50 ML (PMX) 50 ML IVPB ×3 (06:37→22:23)
[2019-02-23] MEDS: ACCU-CHEK XX ×6 (07:00→20:00)
[2019-02-23] MEDS: INSULIN ASPART [NOVOLOG] 3 ML PEN SC ×7 (08:16→20:27)
[2019-02-23] MEDS: INSULIN GLARGINE [LANTus] (100 UNITS/ML) SYG SC (08:17)
[2019-02-23] MEDS: metFORMIN 500 MG TAB PO ×2 (08:20→17:38)
[2019-02-23] MEDS: BETHANECHOL 25 MG TAB PO ×3 (08:21→20:20)
[2019-02-23] MEDS: SENNA TAB PO ×2 (08:21→20:20)
[2019-02-23] MEDS: DOCUSATE SODIUM 100 MG CAP PO ×3 (08:21→20:28)
[2019-02-23] MEDS: FLUOXETINE 20 MG CAP PO (08:21)
[2019-02-23] MEDS: LEVETIRACETAM 750 MG TAB PO ×2 (08:21→20:20)
[2019-02-23] MEDS: LUBIPROSTONE 24 MCG CAP PO ×2 (08:21→20:20)
[2019-02-23] MEDS: RISPERIDONE 2 MG TAB PO ×2 (08:21→20:21)
[2019-02-23] MEDS: GABAPENTIN 300 MG CAP PO ×3 (08:21→20:20)
[2019-02-23] MEDS: LISINOPRIL 5 MG TAB PO (08:21)
[2019-02-23] MEDS: EMPAGLIFLOZIN 10 MG TABLET PO (08:22)
[2019-02-23] MEDS: NEOMYC/POLYMYX/BACIT 30 GM OINT TOP ×2 (08:22→20:27)
[2019-02-23] MEDS: METHYLNALTREXONE 12 MG/0.6 ML VIAL SC (12:41)
[2019-02-23] MEDS: LORAZEPAM 0.5 MG TAB PO (16:16)
[2019-02-23] MEDS: FERROUS SULFATE (EC) 325 MG TAB PO (17:37)
[2019-02-23] MEDS: HYDROmorphONE 2 MG TAB PO (20:16)
[2019-02-23] MEDS: ROPINIROLE 1 MG TAB PO (20:20)
[2019-02-23] MEDS: ATORVASTATIN 40 MG TAB PO (20:21)
[2019-02-23] MEDS: ZOLPIDEM 5 MG TAB PO (22:23)
[2019-02-24] MEDS: CEFAZOLIN 1 GM/50 ML (PMX) 50 ML IVPB ×3 (06:01→22:47)
[2019-02-24] MEDS: ACCU-CHEK XX ×6 (07:00→20:31)
[2019-02-24] MEDS: INSULIN GLARGINE [LANTus] (100 UNITS/ML) SYG SC (08:14)
[2019-02-24] MEDS: INSULIN ASPART [NOVOLOG] 3 ML PEN SC ×7 (08:14→20:32)
[2019-02-24] MEDS: metFORMIN 500 MG TAB PO ×2 (08:19→17:44)
[2019-02-24] MEDS: GABAPENTIN 300 MG CAP PO ×3 (08:19→20:35)
[2019-02-24] MEDS: EMPAGLIFLOZIN 10 MG TABLET PO (08:20)
[2019-02-24] MEDS: FLUOXETINE 20 MG CAP PO (08:20)
[2019-02-24] MEDS: DOCUSATE SODIUM 100 MG CAP PO ×3 (08:20→20:34)
[2019-02-24] MEDS: LEVETIRACETAM 750 MG TAB PO ×2 (08:20→20:34)
[2019-02-24] MEDS: LUBIPROSTONE 24 MCG CAP PO ×2 (08:20→20:34)
[2019-02-24] MEDS: LISINOPRIL 5 MG TAB PO (08:21)
[2019-02-24] MEDS: BETHANECHOL 25 MG TAB PO ×3 (08:21→20:35)
[2019-02-24] MEDS: SENNA TAB PO ×2 (08:21→20:35)
[2019-02-24] MEDS: RISPERIDONE 2 MG TAB PO ×2 (08:21→20:35)
[2019-02-24] MEDS: NEOMYC/POLYMYX/BACIT 30 GM OINT TOP ×2 (08:23→20:35)
[2019-02-24] MEDS: HYDROmorphONE 2 MG TAB PO (14:39)
[2019-02-24] MEDS: LORAZEPAM 0.5 MG TAB PO (15:20)
[2019-02-24] MEDS: FERROUS SULFATE (EC) 325 MG TAB PO (17:44)
[2019-02-24] MEDS: METHYLNALTREXONE 12 MG/0.6 ML VIAL SC (17:46)
[2019-02-24] MEDS: ROPINIROLE 1 MG TAB PO (20:35)
[2019-02-24] MEDS: ATORVASTATIN 40 MG TAB PO (20:35)
[2019-02-25] MEDS: CEFAZOLIN 1 GM/50 ML (PMX) 50 ML IVPB ×2 (05:47→14:48)
[2019-02-25] MEDS: ACCU-CHEK XX ×6 (07:00→20:00)
[2019-02-25] MEDS: metFORMIN 500 MG TAB PO ×2 (08:47→17:26)
[2019-02-25] MEDS: LEVETIRACETAM 750 MG TAB PO ×2 (08:48→20:20)
[2019-02-25] MEDS: BETHANECHOL 25 MG TAB PO ×3 (08:48→20:21)
[2019-02-25] MEDS: EMPAGLIFLOZIN 10 MG TABLET PO (08:48)
[2019-02-25] MEDS: FLUOXETINE 20 MG CAP PO (08:48)
[2019-02-25] MEDS: GABAPENTIN 300 MG CAP PO ×3 (08:48→20:20)
[2019-02-25] MEDS: LUBIPROSTONE 24 MCG CAP PO ×2 (08:48→20:20)
[2019-02-25] MEDS: RISPERIDONE 2 MG TAB PO ×2 (08:48→20:20)
[2019-02-25] MEDS: LISINOPRIL 5 MG TAB PO (08:49)
[2019-02-25] MEDS: DOCUSATE SODIUM 100 MG CAP PO ×3 (08:49→20:20)
[2019-02-25] MEDS: SENNA TAB PO ×2 (08:49→20:21)
[2019-02-25] MEDS: INSULIN ASPART [NOVOLOG] 3 ML PEN SC ×8 (08:57→20:21)
[2019-02-25] MEDS: INSULIN GLARGINE [LANTus] (100 UNITS/ML) SYG SC (08:58)
[2019-02-25] MEDS: NEOMYC/POLYMYX/BACIT 30 GM OINT TOP ×2 (09:01→20:21)
[2019-02-25] MEDS: BISACODYL 10 MG SUPP PR (09:30)
[2019-02-25] MEDS: MAGNESIUM HYDROXIDE 30ML CUP PO (09:30)
[2019-02-25] MEDS: METHYLNALTREXONE 12 MG/0.6 ML VIAL SC (11:42)
[2019-02-25] MEDS: HYDROmorphONE 2 MG TAB PO (14:48)
[2019-02-25] MEDS: FERROUS SULFATE (EC) 325 MG TAB PO (17:23)
[2019-02-25] MEDS: DEXTROSE 50% 50 ML SYRINGE IV (17:23)
[2019-02-25] MEDS: ATORVASTATIN 40 MG TAB PO (20:21)
[2019-02-25] MEDS: ROPINIROLE 1 MG TAB PO (20:21)
[2019-02-25] MEDS: ZOLPIDEM 5 MG TAB PO (20:25)
[2019-02-26] MEDS: ACCU-CHEK XX ×6 (07:00→20:00)
[2019-02-26] MEDS: BETHANECHOL 25 MG TAB PO ×3 (08:26→20:26)
[2019-02-26] MEDS: metFORMIN 500 MG TAB PO ×2 (08:26→17:27)
[2019-02-26] MEDS: LUBIPROSTONE 24 MCG CAP PO ×2 (08:27→20:27)
[2019-02-26] MEDS: DOCUSATE SODIUM 100 MG CAP PO ×3 (08:27→20:27)
[2019-02-26] MEDS: SENNA TAB PO ×2 (08:27→20:27)
[2019-02-26] MEDS: GABAPENTIN 300 MG CAP PO ×3 (08:27→20:27)
[2019-02-26] MEDS: EMPAGLIFLOZIN 10 MG TABLET PO (08:28)
[2019-02-26] MEDS: FLUOXETINE 20 MG CAP PO (08:28)
[2019-02-26] MEDS: RISPERIDONE 2 MG TAB PO ×2 (08:29→20:26)
[2019-02-26] MEDS: LISINOPRIL 5 MG TAB PO (08:29)
[2019-02-26] MEDS ORDERED: BISACODYL 10 MG SUPP PR (08:30)
[2019-02-26] MEDS: LEVETIRACETAM 750 MG TAB PO ×2 (08:34→20:27)
[2019-02-26] MEDS: INSULIN ASPART [NOVOLOG] 3 ML PEN SC ×7 (08:37→20:27)
[2019-02-26] MEDS: NEOMYC/POLYMYX/BACIT 30 GM OINT TOP (08:38)
[2019-02-26] MEDS: INSULIN GLARGINE [LANTus] (100 UNITS/ML) SYG SC (08:38)
[2019-02-26] MEDS: HYDROmorphONE 2 MG TAB PO (16:01)
[2019-02-26] MEDS: METHYLNALTREXONE 12 MG/0.6 ML VIAL SC (17:27)
[2019-02-26] MEDS: FERROUS SULFATE (EC) 325 MG TAB PO (17:27)
[2019-02-26] MEDS: ROPINIROLE 1 MG TAB PO (20:26)
[2019-02-26] MEDS: ATORVASTATIN 40 MG TAB PO (20:27)
== END 2019-02-26 21:25 | DRG 454 ==
LOC: REC 11:34 → TEL 02-04 09:45 → 2NE 02-09 15:10 → ICU 18:32 → MS1 01-23 14:33
PROVIDERS: Neurological Surgery
PROC: 0SG10A0 Fusion of 2 or more Lumbar Vertebral Joints with Interbody Fusion Device, Anterior Approach, Anterior Column, Open Approach (ICD-10-PCS; principal; 2019-01-22 14:00)
PROC: 0SB20ZZ Excision of Lumbar Vertebral Disc, Open Approach (ICD-10-PCS; 2019-01-22 14:00)
PROC: 0SG10J1 Fusion of 2 or more Lumbar Vertebral Joints with Synthetic Substitute, Posterior Approach, Posterior Column, Open Approach (ICD-10-PCS; 2019-01-22 14:28)
PROC: 0SG30J1 Fusion of Lumbosacral Joint with Synthetic Substitute, Posterior Approach, Posterior Column, Open Approach (ICD-10-PCS; 2019-01-22 14:28)
PROC: 30233N1 Transfusion of Nonautologous Red Blood Cells into Peripheral Vein, Percutaneous Approach (ICD-10-PCS; 2019-01-22 14:28)
DX: M47.26 Other spondylosis with radiculopathy, lumbar region (principal); Z68.41 Body mass index [BMI] 40.0-44.9, adult; D62 Acute posthemorrhagic anemia; E87.1 Hypo-osmolality and hyponatremia; N39.0 Urinary tract infection, site not specified; E87.2 Acidosis; I50.9 Heart failure, unspecified; E66.01 Morbid (severe) obesity due to excess calories; E78.5 Hyperlipidemia, unspecified; G40.909 Epilepsy, unspecified, not intractable, without status epilepticus; F31.9 Bipolar disorder, unspecified; R33.9 Retention of urine, unspecified; I25.2 Old myocardial infarction; I69.928 Other speech and language deficits following unspecified cerebrovascular disease; E11.65 Type 2 diabetes mellitus with hyperglycemia; I25.10 Atherosclerotic heart disease of native coronary artery without angina pectoris; E87.5 Hyperkalemia; B96.20 Unspecified Escherichia coli [E. coli] as the cause of diseases classified elsewhere; I11.0 Hypertensive heart disease with heart failure; M51.17 Intervertebral disc disorders with radiculopathy, lumbosacral region; G43.809 Other migraine, not intractable, without status migrainosus; R10.13 Epigastric pain; R11.2 Nausea with vomiting, unspecified; K59.03 Drug induced constipation; Z96.652 Presence of left artificial knee joint
CPT/HCPCS: 36430; 36600; 71045; 72100; 72114; 72131; 74018; 74176; 80048; 80053; 82140; 82270; 82607; 82728; 82746; 82803; 82962; 83036; 83540; 83690; 83735; 84443; 85014; 85018; 85025; 85045; 85651; 86803; 86850; 86900; 86901; 86920; 87040-91; 87045; 87086; 88304; 88311; 97110; 97116; 97163; 97164; 97530